=== PATIENT | female | born 1985 | race American Indian/Alaskan Native ===

== ENCOUNTER 2016-08-15 00:32 | Outpatient (CLI) | payer MEDICAID ==
[2016-08-15 06:06] LABS: Bilirubin,Urine NEG (Negative); Blood,Urine NEG (Negative); Ketones,Urine TR mg/dL (Negative); Leukocyte Esterase,Urine LG (Negative); Mucus,Urine 3+ /HPF; Nitrite,Urine NEG (Negative); Renal Epithelial Cells,Urine 1 /LPF
[2016-08-15] MEDS ORDERED: ROCEPHIN/NS 1 GM/50 ML 1 GM/50 ML BAG IV ONE (07:58)
[2016-08-15] MEDS ORDERED: TYLENOL PO ONE (07:59)
--- NOTE | 2016-08-15 08:16 | Emergency Department Report ---
- General Chief Complaint: Upper Respiratory Infection Stated Complaint: COLD SX/COUGH/PELVIC PAIN Time Seen by Provider: 08/15/16 07:41 Source: patient Mode of arrival: Ambulatory Limitations: No Limitations - History of Present Illness Initial Comments: 31-year-old female past medical history heavy smoker (3 packs/day per pt), ectopic presents with complaint of upper airway congestion, runny nose, cough for approximately one week. Patient states she is also had some mild vaginal spotting and crampy lower abdominal pain. Patient has no idea when her last menstrual period was. Patient is awake alert and oriented 3 not in acute distress, states that she came in primarily for upper airway congestion. Before I interviewed the patient she had urine test done which shows that she has both UTI and is positively and urine sample. He shouldn't is very aloof, slightly disheveled, I suspect this patient may be undomiciled based on her appearance during my clinical interview. Patient also not divulging much information, seems hesitant to give me details regarding her status. Patient awake alert and oriented 3. MD Complaint: fever, cough, rhinorrhea Onset/Timin -: week(s) - Related Data Home Medications Medication Instructions Recorded Confirmed Last Taken Vit #76/Iron,Carb/FA [Pnv 1 tab PO DAILY 01/06/15 01/06/15 Unknown 29-1 Tablet] Previous Rx's Medication Instructions Recorded Last Taken Type Ibuprofen [Motrin] 800 mg PO Q8H PRN #30 tablet 01/04/15 Unknown Rx [id number]/Iron Fumarate/FA/Dss 1 each PO QDAY #30 tablet 01/04/15 Unknown Rx [ 19 Tablet] Ferrous Sulfate [Feosol 325 MG tab] 325 mg PO BID #60 tablet 06/17/15 Unknown Rx HYDROcodone/APAP 5-325 [[place] 1 each PO Q6HR PRN #30 tablet 06/17/15 Unknown Rx 5-325 mg TAB] Docusate Sodium [Colace] 100 mg PO BID PRN #30 capsule 06/29/15 Unknown Rx Ondansetron [Zofran Odt] 4 mg PO Q6HR #20 tab.rapdis 06/29/15 Unknown Rx Oxycodone HCl/Acetaminophen 1 each PO Q6HR PRN #20 tablet 06/29/15 Unknown Rx [Percocet 7.5/325 mg] levETIRAcetam [Keppra TAB] 500 mg PO BID #60 tablet 06/29/15 Unknown Rx Acetaminophen [Acetaminophen TAB] 500 mg PO Q6HR #30 tablet 08/15/16 Unknown Rx Nitrofurantoin Petroleum/M-Cryst 100 mg PO Q12HR #14 capsule 08/15/16 Unknown Rx [Macrobid CAP] Allergies Allergy/AdvReac Type Severity Reaction Status Date / Time No Known Allergies Allergy Unverified 06/17/15 10:57 ED Review of Systems ROS: Stated complaint: COLD SX/COUGH/PELVIC PAIN Other details as noted in HPI ED Past Medical Hx - Past Medical History Previous Medical History?: Yes Hx Seizures: Yes (?? possible immediate phase 01/2015) Hx Asthma: No Hx COPD: No Hx HIV: Yes (DX 12/19) - Surgical History Additional Surgical History: C/S x 4 / SURGERY FOR ECTOPIC - Social History Smoking Status: Never Smoker Substance Use Type: None - Medications Home Medications: Home Medications Medication Instructions Recorded Confirmed Last Taken Type Ibuprofen [Motrin] 800 mg PO Q8H PRN #30 tablet 01/04/15 Unknown Rx [id number]/Iron Fumarate/FA/Dss 1 each PO QDAY #30 tablet 01/04/15 Unknown Rx [ 19 Tablet] Vit #76/Iron,Carb/FA [Pnv 1 tab PO DAILY 01/06/15 01/06/15 Unknown History 29-1 Tablet] Ferrous Sulfate [Feosol 325 MG tab] 325 mg PO BID #60 tablet 06/17/15 Unknown Rx HYDROcodone/APAP 5-325 [[place] 1 each PO Q6HR PRN #30 tablet 06/17/15 Unknown Rx 5-325 mg TAB] Docusate Sodium [Colace] 100 mg PO BID PRN #30 capsule 06/29/15 Unknown Rx Ondansetron [Zofran Odt] 4 mg PO Q6HR #20 tab.rapdis 06/29/15 Unknown Rx Oxycodone HCl/Acetaminophen 1 each PO Q6HR PRN #20 tablet 06/29/15 Unknown Rx [Percocet 7.5/325 mg] levETIRAcetam [Keppra TAB] 500 mg PO BID #60 tablet 06/29/15 Unknown Rx Acetaminophen [Acetaminophen TAB] 500 mg PO Q6HR #30 tablet 08/15/16 Unknown Rx Nitrofurantoin Petroleum/M-Cryst 100 mg PO Q12HR #14 capsule 08/15/16 Unknown Rx [Macrobid CAP] ED Physical Exam - General Limitations: No Limitations ED Course Vital Signs 08/15/16 01:14 Temperature 97.6 F Pulse Rate 80 Respiratory 18 Rate Blood Pressure 111/67 O2 Sat by Pulse 100 Oximetry ED Medical Decision Making - Lab Data Result diagrams: 08/15/16 08:33 08/15/16 08:33 - Medical Decision Making A/P: at 30 weeks gestation unknown to patient, UTI, URI 1-patient stated she is unaware that she is currently , I informed Dr. Berry and ordered hCG type and screen and ultrasound as per ultrasound she is approximately 30 weeks with EDC 10/20/16 2-treated empirically with 1 g of IM ceftriaxone for UTI 3-I called on-call [facility] Dr. Richardson and discussed case with her, per patient to be transferred to L&D triage for monitoring care. I informed Dr. Sanchez this patient may have underlying psychosocial issues as per my clinical impression during my clinical interview of the patient 4-I updated Dr. Berry on patient's progress and plan for transfer to L&D 5- patient agreeable to monitoring Critical care attestation.: If time is entered above; I have spent that time in minutes in the direct care of this critically ill patient, excluding procedure time. ED Disposition Clinical Impression: Qualifiers: Weeks of gestation: 30 weeks Qualified Code(s): Z3A.30 - 30 weeks gestation of Disposition: DC/TX ANOTHER TYPE HEALTHCARE Is pt being admited?: No Does the pt Need Aspirin: No Condition: Stable Instructions: Urinary Tract Infection in Women (ED), (ED), How to Stop Smoking (ED) Additional Instructions: Patient physically transferred from adult ED to labor and delivery department by hospital corpsman and patient understands she is going to labor and delivery department for monitoring after my discussion of her case with BUILD TECHNICIAN Dr. Sanchez. Patient agreeable to this plan Prescriptions: Acetaminophen [Acetaminophen TAB] 500 mg PO Q6HR #30 tablet Nitrofurantoin Petroleum/M-Cryst [Macrobid CAP] 100 mg PO Q12HR #14 capsule Referrals: PRIMARY CARE, [Primary Care Provider] - 3-5 Days GERDA SANCHEZ MD [Staff Physician] - 3-5 Days [facility] [Provider Group] - 3-5 Days Time of Disposition: 10:47
[2016-08-15 08:51] LABS: Basophils % (Auto) 0.5 % (0.0-1.8); Eosinophils % (Auto) 2.3 % (0.0-4.3); Hematocrit 36.4 % (30.3-42.9); Hemoglobin 11.8 gm/dl (10.1-14.3); Mean Corpuscular HGB Conc 32 % (30-34); Mean Corpuscular Hemoglobin 27 pg (28-32); Mean Corpuscular Volume 83 fl (79-97); Platelet Count 193 K/mm3 (140-440); Red Blood Count 4.38 M/mm3 (3.65-5.03); Red Cell Distribution Width 15.7 % (13.2-15.2); White Blood Count 4.1 K/mm3 (4.5-11.0)
[2016-08-15 09:13] LABS: Alanine Aminotransferase 16 units/L (7-56); Albumin/Globulin Ratio 0.9 %; Alkaline Phosphatase 99 units/L (35-129); Anion Gap 18 mmol/L; Bilirubin,Total 0.2 mg/dL (0.1-1.2); Blood Urea Nitrogen 7 mg/dL (7-17); Calcium 9.1 mg/dL (8.4-10.2); Carbon Dioxide 22 mmol/L (22-30); Chloride 99.6 mmol/L (98-107); Glucose 68 mg/dL (65-100); Potassium 3.8 mmol/L (3.6-5.0); Sodium 136 mmol/L (137-145); Total Protein 8.4 g/dL (6.3-8.2)
[2016-08-15 09:16] LABS: Bilirubin,Direct < 0.2 mg/dL (0-0.2)
[2016-08-15] MEDS ORDERED: XYLOCAINE 1% MPF 5 mL INFILTRATI ONE (09:24)
[2016-08-15] MEDS ORDERED: ROCEPHIN IM ONE (09:24)
--- NOTE | 2016-08-15 10:02 | Ultrasound Report ---
OB ULTRASOUND: Gestation: trivedi Position: cephalic Amniotic Fluid: WNL (7-24 cm) CHRIS = 15.3 cm Placenta: anterior Placental Grade: I Heart Rate: 135 BPM Cervical length: 3.7 cm (Normal > 3 cm) ANATOMY VISUALIZED: Stomach Kidneys Bladder Diaphragm 4 Chamber Heart Heart 3 Vessel Cord SPINE VISUALIZED: Limited spine due to position BPD: 7.6 cm = 30 w 2 d HC: 29.1 cm = 32 w 1 d AC: 25.8 cm = 30 w 0 d FL: 5.7 cm = 29 w 6 d HC/AC Ratio: 1.13 Cephalic Index: 83.5 Estimated Weight: 1523 grams LMP: uncertain US Gest. Age = 30 w 4 d EDC: 10-20-
[2016-08-15 10:58] VITALS: BP 110/70
[2016-08-15] MEDS ORDERED: LACTATED RINGERS 500 ML IV ONE ×2 (11:37→11:38)
[2016-08-15 12:03] LABS: Bilirubin,Urine NEG (Negative); Blood,Urine NEG (Negative); Ketones,Urine NEG (Negative); Leukocyte Esterase,Urine SM (Negative); Mucus,Urine FEW /HPF; Nitrite,Urine NEG (Negative); Protein,Urine <15 mg/dL mg/dL (Negative); Urobilinogen,Urine < 2.0 mg/dL (<2.0)
== END 2016-08-15 13:25 | disposition home or self-care (01) ==
LOC: TRG 00:32 → ED 00:32 → TRG 11:20 → ED 11:20 → TRG 11:20 → EDSTATUS 11:29 → TRG 13:25
PROVIDERS: ATTEND Obstetrics & Gynecology
DX: O26.893 Other specified pregnancy related conditions, third trimester (principal); O77.9 Labor and delivery complicated by fetal stress, unspecified; R10.2 Pelvic and perineal pain; J00 Acute nasopharyngitis [common cold]; Z3A.30 30 weeks gestation of pregnancy
CPT/HCPCS: 36415; 59025; 76805; 76817; 80048; 80074; 81001; 81025; 83735; 84702; 85025; 86850; 86900; 86901; J0696; J7120

== ENCOUNTER 2016-10-04 18:53 | Inpatient (IN) | payer MEDICAID ==
[2016-10-04] MEDS ORDERED: BRETHINE SUB-Q ONE (19:09)
[2016-10-04] MEDS ORDERED: LACTATED RINGERS 1,000 ML IV SCH ×2 (20:00→22:00)
[2016-10-04 21:00] LABS: Urine Drugs of Abuse Note Disclamer
[2016-10-04 21:07] LABS: Bilirubin,Urine NEG (Negative); Blood,Urine NEG (Negative); Ketones,Urine 20 mg/dL (Negative); Leukocyte Esterase,Urine MOD (Negative); Mucus,Urine 1+ /HPF; Nitrite,Urine NEG (Negative)
[2016-10-04] MEDS ORDERED: PEPCID IV ONE (21:08)
[2016-10-04] MEDS ORDERED: BICITRA PO ONE (21:08)
[2016-10-04] MEDS ORDERED: REGLAN IV ONE (21:08)
[2016-10-04] MEDS ORDERED: EMLA TP PRN (21:08)
--- NOTE | 2016-10-04 21:21 | History and Physical Report ---
History of Present Illness Date of examination: 10/04/16 Date of admission: 10/04/16 20:54 Chief complaint: Painful contractions for 3 days History of present illness: This is a 31-year-old female 6 para 4 who presents for EMS complaining of painful contractions for 3 days. She presented to [facility] 2016 with the same complaint at which time she had an ultrasound that placed her estimated gestational age at 30 weeks with an estimated date of delivery of 10/20/2016. States contractions became progressively worse which prompted her to call EMS. Initial evaluation by the RN reveals cervix to be 1-2/100/0. IV fluid was started during her evaluation spontaneous rupture of membranes occur with meconium-stained fluid. During her assessment patient said she states she was diagnosed HIV-positive in December of last year. She has not been on any antivirals and she has not received any care in this . Cervix progressed to 2-3 cm dilation. Her past obstetrical history is significant for 4 previous C-sections. Due to concerns for uterine rupture will proceed with delivery immediately especially now the patient is ruptured. 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), section [employer] History: HIV Social history: alcohol abuse, IV drug use - Obstetrical History Expected Date of Delivery: 10/20/16 Actual Gestation: 37 Week(s) 5 Day(s) : 6 Spontaneous Abortions: 1 (Ectopic) Number of Living Children: 4 (c/sx4) Medications and Allergies Allergies Allergy/AdvReac Type Severity Reaction Status Date / Time No Known Allergies Allergy Unverified 06/17/15 10:57 Home Medications Medication Instructions Recorded Confirmed Last Taken Type Ibuprofen [Motrin] 800 mg PO Q8H PRN #30 tablet 01/04/15 Unknown Rx [id number]/Iron Fumarate/FA/Dss 1 each PO QDAY #30 tablet 01/04/15 Unknown Rx [ 19 Tablet] Vit #76/Iron,Carb/FA [Pnv 1 tab PO DAILY 01/06/15 01/06/15 Unknown History 29-1 Tablet] Ferrous Sulfate [Feosol 325 MG tab] 325 mg PO BID #60 tablet 06/17/15 Unknown Rx HYDROcodone/APAP 5-325 [[place] 1 each PO Q6HR PRN #30 tablet 06/17/15 Unknown Rx 5-325 mg TAB] Docusate Sodium [Colace] 100 mg PO BID PRN #30 capsule 06/29/15 Unknown Rx Ondansetron [Zofran Odt] 4 mg PO Q6HR #20 tab.rapdis 06/29/15 Unknown Rx Oxycodone HCl/Acetaminophen 1 each PO Q6HR PRN #20 tablet 06/29/15 Unknown Rx [Percocet 7.5/325 mg] levETIRAcetam [Keppra TAB] 500 mg PO BID #60 tablet 06/29/15 Unknown Rx Acetaminophen [Acetaminophen TAB] 500 mg PO Q6HR #30 tablet 08/15/16 Unknown Rx Nitrofurantoin [place]/M-Cryst 100 mg PO Q12HR #14 capsule 08/15/16 Unknown Rx [Macrobid CAP] Active Meds: Active Medications Citric Acid/Sodium Citrate (Bicitra) 30 ml PO ONCE ONE Stop: 10/04/16 21:09 Famotidine (Pepcid) 20 mg IV ONCE ONE Stop: 10/04/16 21:09 Lactated Ringer's (Lactated Ringers) 1,000 mls @ 125 mls/hr IV DIRECT NERIS Cefazolin Sodium (Ancef/Sterile Water 2 Gm/20 Ml) 2 gm in 20 mls @ 80 mls/hr IV PREOP NR PRN Reason: Protocol Lactated Ringer's (Lactated Ringers) 1,000 mls @ 2,250 mls/hr IV PREOP NERIS Stop: 10/05/16 22:27 Oxytocin 20 unit/ Sodium (Chloride) 1,000 mls @ 0 mls/hr IV TITR NERIS PRN Reason: As Directed Lidocaine/Prilocaine (Emla) 1 applic TP ONCE PRN PRN Reason: for leyva catheter insertion Metoclopramide HCl (Reglan) 10 mg IV ONCE ONE Stop: 10/04/16 21:09 Zidovudine (Retrovir) 0 mg IV Q4HR NERIS PRN Reason: Protocol Review of Systems All systems: negative Genitourinary: vaginal bleeding, leakage of fluid, contractions - Vital Signs Vital signs: Vital Signs Pulse Pulse Ox 90 100 10/04/16 19:08 10/04/16 19:08 Temp Pulse Resp BP Pulse Ox 81 99 10/04/16 19:54 10/04/16 19:54 - Physical Exam Breasts: Positive: deferred Lungs: Positive: Normal air movement Abdomen: Positive: normal appearance Genitourinary (Female): Positive: normal external genitalia, normal perenium Vulva: both: normal - Obstetrical FHR: category 2 Uterine Contraction Monitor Mode: External Cervical Dilatation: 2.5 Cervical Effacement Percentage: 100 station: 0 Uterine Contraction Pattern: Regular Results Abnormal lab results 10/04/16 Range/Units 20:50 Urine WBC (Auto) 9.0 H (0.0-6.0) /HPF All other labs normal. Assessment and Plan - Patient Problems (1) 37 weeks gestation of Current Visit: Yes Status: Acute (2) Sterilization Current Visit: Yes Status: Acute Plan to address problem: Risks of regret emphasized. Permanent and irreversible condition explained to patient. The risks and alternatives to this surgery were reviewed with the patient. 1% failure rate discussed (3) Active labor at term Current Visit: Yes Status: Acute (4) Maternal care for scar from previous delivery Current Visit: Yes Status: Acute Qualifiers: Previous delivery type: P (5) HIV disease Current Visit: Yes Status: Chronic (6) Spontaneous rupture of membranes Current Visit: Yes Status: Acute (7) Seizure Current Visit: Yes Status: Chronic
[2016-10-04 21:25] LABS: Basophils % (Auto) 0.2 % (0.0-1.8); Eosinophils % (Auto) 0.1 % (0.0-4.3); Hematocrit 36.6 % (30.3-42.9); Hemoglobin 11.9 gm/dl (10.1-14.3); Mean Corpuscular HGB Conc 33 % (30-34); Mean Corpuscular Hemoglobin 27 pg (28-32); Mean Corpuscular Volume 83 fl (79-97); Platelet Count 186 K/mm3 (140-440); Red Blood Count 4.43 M/mm3 (3.65-5.03); Red Cell Distribution Width 15.3 % (13.2-15.2); White Blood Count 12.9 K/mm3 (4.5-11.0)
[2016-10-04] MEDS ORDERED: PITOCin/NS 20 UNIT/1000ML DRIP 20,000 MILLIUNITS/1,000 ML BAG IV ONE (21:33)
[2016-10-04] MEDS ORDERED: RETROVIR IV ONE (22:00)
[2016-10-04] MEDS ORDERED: D5W IV ONE (22:00)
[2016-10-04] MEDS ORDERED: ANCEF/STERILE WATER 2 GM/20 ML 2 GM/20 ML SYRINGE IV NR (22:00)
[2016-10-04] MEDS ORDERED: RETROVIR IV SCH (22:00)
[2016-10-04] MEDS ORDERED: PITOCin 20 UNIT in NACL 0.9% 1000 ML 998 ML IV SCH (22:00)
[2016-10-04] MEDS ORDERED: DIPRIVAN 10 MG/ML IV ONE (22:42)
[2016-10-04] MEDS ORDERED: SUBLIMAZE ONE (22:45)
[2016-10-04 22:54] LABS: HIVR-1/2 Ab Reactive (Non React)
[2016-10-04] MEDS ORDERED: WATER FOR IRRIG STERILE IR ONE (22:55)
[2016-10-04] MEDS ORDERED: NACL 0.9% IR ONE (22:55)
[2016-10-04] MEDS ORDERED: MORPHINE ONE (23:00)
[2016-10-04] MEDS ORDERED: RETROVIR 400 MG in D5W 160 ML IV SCH (23:00)
[2016-10-04 23:02] LABS: HIV-1 Antigen p24 Non React (Non React)
[2016-10-04] MEDS ORDERED: QUELICIN ONE (23:03)
[2016-10-04] MEDS ORDERED: TORADOL ONE (23:16)
--- NOTE | 2016-10-04 23:58 | Anesthesia Consultation ---
Anesthesia Consult and Med Hx Date of service: 10/04/16 - Airway Anesthetic Teeth Evaluation: Good ROM Head & Neck: Adequate Mental/Hyoid Distance: Adequate Mallampati Class: Class II Intubation Access Assessment: Good - Pulmonary Exam CTA: Yes - Cardiac Exam Cardiac Exam: No Murmur - Pre-Operative Health Status ASA Pre-Surgery Classification: ASA3 Proposed Anesthetic Plan: General - Pulmonary Hx Smoking: Yes Hx Asthma: No COPD: No Hx Pneumonia: No - Cardiovascular System Hx Hypertension: No - Central Nervous System Hx Seizures: Yes (?? possible immediate phase 01/2015) Hx Back Pain: Yes Hx Psychiatric Problems: No - Gastrointestinal Hx Gastroesophageal Reflux Disease: Yes - Endocrine Hx Renal Disease: No Hx End Stage Renal Disease: No Hx Hypothyroidism: No Hx Hyperthyroidism: No - Hematic Hx Anemia: No Hx Sickle Cell Disease: No - Other Systems Hx Alcohol Use: No
--- NOTE | 2016-10-04 23:58 | Post Anesthesia Evaluation ---
- Post Anesthesia Evaluation Patient Participated: Yes Airway Patent: Yes Stable Respiratory Function: Yes Nausea/Vomiting: No Temp > 96.8F: Yes Pain Manageable: Yes Adequeate Hydration: Yes Anesthesia Complications: No
[2016-10-05] MEDS ORDERED: LANSINOH TP PRN (01:35)
[2016-10-05] MEDS ORDERED: BENADRYL IV PRN (01:35)
[2016-10-05] MEDS ORDERED: NARCAN 0.4 MG/1 ML IV PRN ×2 (01:35)
[2016-10-05] MEDS ORDERED: PHENERGAN PR PRN (01:35)
[2016-10-05] MEDS ORDERED: MOTRIN PO PRN (01:35)
[2016-10-05] MEDS ORDERED: PITOCin 20 UNIT in NACL 0.9% 1000 ML 998 ML IV SCH (01:35)
[2016-10-05] MEDS ORDERED: REGLAN PO PRN (01:35)
[2016-10-05] MEDS ORDERED: DILAUDID PCA 6MG/30ML IV SCH (01:35)
[2016-10-05] MEDS ORDERED: ZOFRAN IV PRN (01:35)
[2016-10-05] MEDS ORDERED: REGLAN IV PRN (01:35)
[2016-10-05] MEDS ORDERED: BENADRYL PO PRN (01:35)
[2016-10-05] MEDS ORDERED: SODIUM CHLORIDE FLUSH SYRINGE 10 ML IV PRN (01:35)
[2016-10-05] MEDS ORDERED: TUCKS PAD TP PRN (01:35)
[2016-10-05] MEDS ORDERED: D5LR 1,000 ML IV SCH (01:35)
--- NOTE | 2016-10-05 02:00 | Operative Report ---
Operative Report Operative Report: Date of procedure: 10/04/2016 Pre-operative diagnosis: 1. Intrauterine at 37 weeks 2. Active labor 3. Spontaneous rupture of membranes, meconium-stained fluid 4. No care 5. HIV positive 6. Seizure disorder 7. Previous 4 8. Desires sterilization Post-operative diagnosis: 1. Intrauterine at 37 weeks 2. Active labor 3. Spontaneous rupture of membranes, meconium-stained fluid 4. No care 5. HIV positive 6. Seizure disorder 7. Previous 4 8. Desires sterilization Procedure name(s): Low transverse section Surgeon: Jen Watts MD Director Of Strategic Alliances: [] Anesthesia: General anesthesia EBL: 800 mL Anesthesiologist: Dr. efren Smith Complications: None Findings: Born male infant, weight 6 lbs. 5 oz. Apgars 2 at 1 minute and 7 at 5 minutes. As per patient history she only had a 5 cm segment of distal tube on the right. There was no tube attached to the uterus on the right side. Grossly normal left fallopian tube and bilateral ovaries and uterus. Thick meconium at delivery. Procedure: After risks, benefits, and complications and alternatives and consequences, were discussed with patient, and she voiced her understanding and desired to proceed. Patient was taken to the OR, where she was placed in the left lateral tilt position, and prepped and draped in the usual sterile fashion. After timeout was performed, general anesthesia was induced, ( patient received spinal epidural) a Pfannenstiel incision was made and extended to the fascia. The fascia was incised and extended in a lateral direction. The overlying fascia was sharply dissected away from the underlying rectus muscles in the superior-inferior direction. Due to excessive adhesions the time to entering the abdomen was prolonged. The midline was entered bluntly. The vesicouterine fold was incised and with blunt and sharp dissection the bladder flap was created. A transverse incision was made in the lower uterine segment and extended in the superior lateral direction with finger fractionation. Meconium fluid was noted. The infant was delivered from the cephalic position.The cord was doubly clamped and cut. The infant's mouth and nose were bulb suctioned. And the infant was given to the resuscitation team present. The placenta was manually extracted. The uterus was exteriorized and cleaned any products of conception and placental tissue. The incision was reapproximated using 0 Vicryl in a running interlocking stitch. A Filshie clip was placed on the ampullary region of the left tube. The inferior lip was visualized through the mesosalpinx and clamping the tube. A Filshie clip was also placed on the remaining distal portion of the right tube. Once hemostasis was noted, the uterus was allowed back into the pelvic cavity. The pelvis was irrigated with warm normal saline. Once hemostasis was noted, attention was turned to the rectus muscles. Rectus muscles were approximated using 0 Vicryl in interrupted suture. Once hemostasis was noted, the fascia was reapproximated using 0 Vicryl in a simple running stitch. Once hemostasis was noted, the incision was irrigated with normal saline. The incision was then reapproximated using 4-0 Vicryl on a Jose needle in a subcuticular manner. Patient tolerated the procedure well she was taken to recovery room in stable condition. Counts were correct 3
[2016-10-05] MEDS: ANCEF/NS 1 GM/50 ML 1 GM/50 ML BAG IV SCH ×2 (06:08→15:43)
[2016-10-05] MEDS: TORADOL IV SCH ×2 (06:09→15:49)
--- NOTE | 2016-10-05 08:01 | Progress Note ---
Assessment and Plan - Patient Problems (1) delivery delivered Onset Date: ~10/05/16 Current Visit: No Status: Acute Plan to address problem: pt resting quietly No c/o voiced VSS FF below umb Lochia small Dressing D&I H&H pending Doing well s/p repeat c/s P: continue pathway; AZT given to baby; notified of consult ID and CM to see pt also. Subjective - Subjective Date of service: 10/05/16 (8 hours post section) Patient reports: pain well controlled [place]: doing well Objective - Vital Signs Latest vital signs: Vital Signs Temp Pulse Pulse Resp BP BP Pulse Ox 10/05/16 06:09 20 10/05/16 05:10 98.5 F 81 18 118/59 10/05/16 04:00 18 10/05/16 01:35 98.6 F 65 20 149/80 10/05/16 00:56 63 13 120/46 100 10/05/16 00:50 60 13 121/60 100 10/05/16 00:45 59 L 17 121/60 100 10/05/16 00:40 59 L 18 130/59 100 10/05/16 00:36 60 17 138/42 100 10/05/16 00:30 61 12 124/53 100 10/05/16 00:26 60 20 124/53 100 10/05/16 00:20 59 L 20 123/57 100 10/05/16 00:15 61 15 119/69 100 10/05/16 00:10 62 12 125/59 100 10/05/16 00:05 61 12 136/67 100 10/05/16 00:00 69 12 100 10/04/16 23:56 70 15 100 10/04/16 23:55 98.0 F 10/04/16 23:52 82 10 L 10/04/16 19:54 81 99 10/04/16 19:49 92 H 100 10/04/16 19:44 99 H 98 10/04/16 19:39 105 H 92 10/04/16 19:38 94 H 100 10/04/16 19:33 89 100 10/04/16 19:32 99 H 89 10/04/16 19:28 91 H 100 10/04/16 19:23 85 100 10/04/16 19:21 85 92 10/04/16 19:18 91 H 100 10/04/16 19:13 95 H 100 10/04/16 19:08 90 100 Intake and Output 10/04/16 10/05/16 10/05/16 22:59 06:59 14:59 Intake Total 500 1375 Output Total 325 Balance 500 1050 Intake: IV 500 1375 PITOCin 20 UNIT In NaCl 0 375 .9% 1000 ml 998 ml @ 250 mls/hr IV DIRECT NERIS Rx#:[id number] Output: Urine 325 Uretheral (Cobb) 125 Other: Weight 230 lb - Exam Breasts: Present: normal Cardiovascular: Present: Regular rate Lungs: Present: Normal air movement Abdomen: Present: normal appearance, soft Uterus: Present: normal, fundal height below umbilicus Extremities: Present: normal Deep Tendon Reflex Grade: Normal +2 Incision: Present: dry, intact, dressed - Labs Labs: Abnormal lab results 10/04/16 10/04/16 Range/Units 20:50 20:50 WBC 12.9 H (4.5-11.0) K/mm3 MCH 27 L (28-32) pg RDW 15.3 H (13.2-15.2) % Lymph % (Auto) 8.6 L (13.4-35.0) % [place] % (Auto) 8.6 H (0.0-7.3) % Lymph # 1.1 L (1.2-5.4) K/mm3 [place] # 1.1 H (0.0-0.8) K/mm3 Seg Neutrophils % 82.5 H (40.0-70.0) % Seg Neutrophils # 10.6 H (1.8-7.7) K/mm3 Urine WBC (Auto) 9.0 H (0.0-6.0) /HPF
[2016-10-05] MEDS: PERCOCET 5/325 PO PRN ×3 (10:17→22:38)
[2016-10-05] MEDS: KEPPRA PO SCH (10:19)
[2016-10-05] MEDS ORDERED: FLUARIX QUAD 2016-2017(36 MOS+) IM ONE (12:00)
[2016-10-05 14:47] LABS: Hematocrit 27.9 % (30.3-42.9); Hemoglobin 9.1 gm/dl (10.1-14.3)
--- NOTE | 2016-10-05 17:07 | Consultation ---
History of Present Illness - Reason for Consult Reason for consult: psych consult - Chief Complaint Chief complaint: CC: I can use you" 31 yo BF with history of bipolar d/o and cocaine abuse presented to [facility] and gave . We have been asked to help manage the patient's mental illness. She was present with her family and permitted them to give information for the interview. The patient notes that she has a history of bipolar disorder that dates back to when she was a teen. Recently she's not been able to get mental health care and notes that she's been off her medications. Despite this her symptoms have been relatively mild per the family and patient. She has been depressed but not to a point of any suicidal thoughts. The patient and family both note that they don't feel the patient is in any risk of harm to herself or the baby. They have not seen the patient act in this fashion either. She has not had any SI/HI/AH/VH. Sleep is fair with no crying spells. No paranoia or lack of energy. However the patient admits that she's been using cocaine- as recently as yesterday in order to help get away from her stressors (this despite have the support of family). Its unclear how often or how much cocaine the patient has been abusing. The family notes that she tends to not follow up with her mental health care and tends to make poor choices that led her into troublesome situations- such as using cocaine while . The patient herself admits to poor choices and still wants to care for her child. Currently the patient denies any SI/HI/AH/VH. The family notes no acute risk of harm is present from the patient. The patient was sedated by the medications being given and a large part of the interview was obtained from the family. Medications and Allergies Allergies Allergy/AdvReac Type Severity Reaction Status Date / Time No Known Allergies Allergy Unverified 06/17/15 10:57 Home Medications Medication Instructions Recorded Confirmed Last Taken Type Ibuprofen [Motrin] 800 mg PO Q8H PRN #30 tablet 01/04/15 Unknown Rx Nru273/Iron Fumarate/FA/Dss 1 each PO QDAY #30 tablet 01/04/15 Unknown Rx [ 19 Tablet] Vit #76/Iron,Carb/FA [Pnv 1 tab PO DAILY 01/06/15 01/06/15 Unknown History 29-1 Tablet] Ferrous Sulfate [Feosol 325 MG tab] 325 mg PO BID #60 tablet 06/17/15 Unknown Rx HYDROcodone/APAP 5-325 [[place] 1 each PO Q6HR PRN #30 tablet 06/17/15 Unknown Rx 5-325 mg TAB] Docusate Sodium [Colace] 100 mg PO BID PRN #30 capsule 06/29/15 Unknown Rx Ondansetron [Zofran Odt] 4 mg PO Q6HR #20 tab.rapdis 06/29/15 Unknown Rx Oxycodone HCl/Acetaminophen 1 each PO Q6HR PRN #20 tablet 06/29/15 Unknown Rx [Percocet 7.5/325 mg] levETIRAcetam [Keppra TAB] 500 mg PO BID #60 tablet 06/29/15 Unknown Rx Acetaminophen [Acetaminophen TAB] 500 mg PO Q6HR #30 tablet 08/15/16 Unknown Rx Nitrofurantoin [place]/M-Cryst 100 mg PO Q12HR #14 capsule 08/15/16 Unknown Rx [Macrobid CAP] Ibuprofen [Motrin 800 MG tab] 800 mg PO TID PRN #30 tablet 10/05/16 Unknown Rx Lidocain2.5%/Prilocai2.5% [Emla] 5 gm TP ONCE #1 tube 10/05/16 Unknown Rx oxyCODONE /ACETAMINOPHEN [Percocet 1 - 2 tab PO Q4HR PRN #30 tablet 10/05/16 Unknown Rx 5/325 mg] Active Meds: Active Medications Diphenhydramine HCl (Benadryl) 25 mg IV Q4H PRN PRN Reason: Itching Diphenhydramine HCl (Benadryl) 25 mg PO Q4H PRN PRN Reason: Itching Diphtheria/Tetanus/Acell Pertussis (Boostrix) 0.5 ml IM .ONCE ONE Stop: 10/06/16 06:01 Hydromorphone/Sodium Chloride (Dilaudid [employer] 6mg/30ml) 0 mg IV DIRECT NERIS PRN Reason: Protocol Last Admin: 10/05/16 02:05 Dose: 1 cartstart Dextrose/Lactated Ringer's (D5lr) 1,000 mls @ 125 mls/hr IV DIRECT NERIS Oxytocin 20 unit/ Sodium (Chloride) 1,000 mls @ 250 mls/hr IV DIRECT [facility] Ibuprofen (Motrin) 800 mg PO Q6H PRN PRN Reason: Pain, Mild (1-3) Ketorolac Tromethamine (Toradol) 30 mg IV Q6H [facility] Stop: 10/06/16 00:01 Last Admin: 10/05/16 15:49 Dose: 30 mg Levetiracetam (Keppra) 500 mg PO BID [facility] Last Admin: 10/05/16 10:19 Dose: 500 mg Metoclopramide HCl (Reglan) 10 mg IV Q6H PRN PRN Reason: N/V if NPO. Metoclopramide HCl (Reglan) 10 mg PO Q6H PRN PRN Reason: Nausea Multi-Ingredient Ointment (Lansinoh) 1 applic TP PRN PRN PRN Reason: dryness/cracking Naloxone HCl (Narcan 0.4 Mg/1 Ml) 0.1 mg IV Q2MIN PRN PRN Reason: Res Rate </= 8 or 02 SAT < 92% Ondansetron HCl (Zofran) 4 mg IV Q8H PRN PRN Reason: N/V unrelieved by Reglan Oxycodone/Acetaminophen (Percocet 5/325) 2 tab PO Q6H PRN PRN Reason: Pain, Moderate (4-6) Last Admin: 10/05/16 16:08 Dose: 2 tab Promethazine HCl (Phenergan) 25 mg [place] Q6H PRN PRN Reason: Nausea And Vomiting Sodium Chloride (Sodium Chloride Flush Syringe 10 Ml) 10 ml IV PRN PRN PRN Reason: LINE FLUSH Witch Jagruti/Glycerin (Tucks Pad) 1 each TP PRN PRN PRN Reason: Hemorrhoids/cleansing/soothing Past psychiatric history - Past Medical History Past Medical History: HIV/AIDS, seizures Past Surgical History: - past Psychiatric treatment and history Psych: Bipolar psychiatric treatment history: inpt: [facility] for two days- patient noted that she wasn't admitted thought outpt: none past psych meds: ritalin and seroquel family history: pt is adopted no suicide attempts substance history: patient admits to cocaine use, no etoh or any other illicit drug use- however unclear details- patient was distracted and sedated - Social History Social history: other (lives with her adoptive "family", she has 5 children, babies father is involved per family, not working, SSI, 9th grade education, [employer] is involved with this , no history of abuse) Mental Status Exam - Vital signs Last Vital Signs Temp 98.1 F 10/05/16 15:40 Pulse 86 10/05/16 15:40 Resp 18 10/05/16 15:40 BP 110/52 10/05/16 15:40 Pulse Ox 100 10/05/16 00:56 - Exam Orientation: time, person Affect: normal Mood: appropriate Thought content: other (impoverished) Thought Process: Circumstantial Perceptions: none Speech: slurring Concentration: distractible, unable to pay attention Motor activity: restless Level of consciousness: sedated Memory: Recent Impaired, Remote Impaired Interaction: cooperative (patient was sedated so a full exam wasn't accomplished ) Results Result Diagrams: 10/05/16 14:14 Abnormal lab results 10/04/16 10/04/16 10/05/16 Range/Units 20:50 20:50 14:14 WBC 12.9 H (4.5-11.0) K/mm3 Hgb 9.1 L (10.1-14.3) gm/dl Hct 27.9 L D (30.3-42.9) % MCH 27 L (28-32) pg RDW 15.3 H (13.2-15.2) % Lymph % (Auto) 8.6 L (13.4-35.0) % Ada % (Auto) 8.6 H (0.0-7.3) % Lymph # 1.1 L (1.2-5.4) K/mm3 Ada # 1.1 H (0.0-0.8) K/mm3 Seg Neutrophils % 82.5 H (40.0-70.0) % Seg Neutrophils # 10.6 H (1.8-7.7) K/mm3 Urine WBC (Auto) 9.0 H (0.0-6.0) /HPF All other labs normal. Assessment and Plan Assessment and plan: 31 yo BF with history of bipolar d/o and cocaine abuse presented to [facility] and gave . We have been asked to help manage the patient's mental illness. She was present with her family and permitted them to give information for the interview. The patient notes that she has a history of bipolar disorder. Currently the symptoms seem to be relatively present but not acute. Patient was sedated from the pain meds but made it clear she wishes to care for the baby. The family is concerned over her not being compliant with her meds and her poor choices including recent use of cocaine. bipolar dx: patient and I discussed using her Seroquel in conjunction with a mood stabilizer. The patient is not going to breastfeed and therefore we feel the combination of both meds will be in the patient's best interest. We discussed side effects and benefits of the meds. Patient is agreeable to begin the meds and agrees follow up care with mental health is highly important. Start with Seroquel 200mg bedtime with Depakote 500mg daily for today - while they are low dosages, I am taking into account the patient is already sedated and will actively adjust accordingly while patient is in the hospital. cocaine: patient will benefit from substance treatment on an outpatient basis alongside her mental health treatment - Psychiatric problem (1) Cocaine abuse Current Visit: Yes Status: Acute
[2016-10-06] MEDS: KEPPRA PO SCH ×3 (00:15→22:10)
[2016-10-06] MEDS: TORADOL IV SCH (00:55)
--- NOTE | 2016-10-06 03:55 | Progress Note ---
Assessment and Plan - Patient Problems (1) delivery delivered Onset Date: ~10/04/16 Current Visit: No Status: Acute Plan to address problem: Pt would not answer questions. RN states pt has also been noncommunicative with her also. She will shake her head in the positive/negative when ask questions. VSS FF below umb Lochia scant Incision D&I H&H 9.1.9 Pt is asymptomatic Pt has been seen by mental health and case management assistant. Second call placed to infectious disease for pt to have consult. P: continue pathway Consult with . Please see consult notes from MH and CM. Subjective - Subjective Date of service: 10/06/16 (pt refused to communicate) Patient reports: appetite normal, voiding normally, pain well controlled, ambulating normally : doing well (in holding nursery) Objective - Vital Signs Latest vital signs: Vital Signs Temp Pulse Resp BP 10/06/16 00:00 98.4 F 74 20 128/53 10/05/16 22:38 20 10/05/16 15:40 98.1 F 86 18 110/52 10/05/16 11:58 97.9 F 60 18 102/50 10/05/16 10:30 20 10/05/16 10:00 18 10/05/16 08:34 98.2 F 64 18 116/50 10/05/16 08:00 20 10/05/16 06:09 20 10/05/16 06:00 20 10/05/16 05:10 98.5 F 81 18 118/59 10/05/16 04:00 18 Intake and Output 10/05/16 10/05/16 10/06/16 14:59 22:59 06:59 Intake Total 2550 840 Output Total 1450 Balance 1100 840 Intake: IV 750 PITOCin 20 UNIT In NaCl 0 750 .9% 1000 ml 998 ml @ 250 mls/hr IV DIRECT NERIS Rx#:[id number] Oral 1320 840 Intake, Free Water 480 Output: Urine 1450 Indwelling Catheter 1450 Other: Total, Intake Amount 120 240 Total, Output Amount 800 Voiding Method Toilet # Voids Indwelling Catheter 1 1 - Exam Breasts: Present: normal Cardiovascular: Present: Regular rate Lungs: Present: Normal air movement Abdomen: Present: normal appearance, soft Vulva: both: normal Uterus: Present: normal, fundal height below umbilicus Extremities: Present: edema Deep Tendon Reflex Grade: Normal +2 Incision: Present: dry, intact - Labs Labs: Abnormal lab results 10/05/16 Range/Units 14:14 Hgb 9.1 L (10.1-14.3) gm/dl Hct 27.9 L D (30.3-42.9) %
[2016-10-06] MEDS ORDERED: BOOSTRIX IM ONE (06:00)
--- NOTE | 2016-10-06 14:43 | Consultation ---
History of Present Illness - Reason for Consult Consult date: 10/06/16 HIV Requesting physician: RAYMUNDO GARCIA - History of Present Illness This is a 31-year-old female 6 para 4 who presents for EMS complaining of painful contractions for 3 days. She presented to [facility] 2016 with the same complaint at which time she had an ultrasound that placed her estimated gestational age at 30 weeks with an estimated date of delivery of 10/20/2016. States contractions became progressively worse which prompted her to call EMS. Initial evaluation by the RN reveals cervix to be 1-2/100/0. IV fluid was started during her evaluation spontaneous rupture of membranes occur with meconium-stained fluid. During her assessment patient said she was diagnosed HIV-positive in December of last year. She has not been on any antivirals and she has not received any care in this . She was delivered of a baby boy by CS. Infectious disease consulted for possibly starting antiretrovirals. Patient seen at bedside. She is drowsy and unable to provide history. Information from medical records indicates that patient had been very non compliance with her care. She reportedly used cocaine even during the . Last cd4 count and viral load unknown. Past Medical History: seizure and bipolar disorder. Physical examination - unremarkable. LABS - Reviewed. See lab section. RPR - neg Hepatitis panel - neg. ASSESSMENT 1. HIV/AIDS 2. Seizure disorder 3. Bipolar disorder. RECOMMENDATIONS 1. CD4 COUNT AND VIRAL LOAD. 2. CBC, BMP. 3. CT head to evaluate drowsiness although drowsiness may be medication induced. 4. Will not commence antiretroviral treatment for her at this point. She is not compliant with treatment and the potential risk of developing resistance with interrupted treatment is a concern. 5. Discussed with the siphon operator, baby is doing well. Baby is on Nevirapine and zidovudine. A third dose of nevirapine should be given in 4days and zidovudine alone should be continued for 6weeks. For a detailed guide as to treatment monitoring and virologic tests on the baby, I recommend a pediatric infectious disease input. 6. No breast feeding. To accomplish this, considering the mothers non adherence to medical advise, I recommend the baby`s care be closely monitored by a third republican. Past History Past Medical History: HIV/AIDS, seizures Past Surgical History: Social history: other (lives with her adoptive "family", she has 5 children, babies father is involved per family, not working, SSI, 9th grade education, [employer] is involved with this , no history of abuse) Medications and Allergies Allergies Allergy/AdvReac Type Severity Reaction Status Date / Time No Known Allergies Allergy Unverified 06/17/15 10:57 Home Medications Medication Instructions Recorded Confirmed Last Taken Type Ibuprofen [Motrin] 800 mg PO Q8H PRN #30 tablet 01/04/15 Unknown Rx Rps698/Iron Fumarate/FA/Dss 1 each PO QDAY #30 tablet 01/04/15 Unknown Rx [ 19 Tablet] Vit #76/Iron,Carb/FA [Pnv 1 tab PO DAILY 01/06/15 01/06/15 Unknown History 29-1 Tablet] Ferrous Sulfate [Feosol 325 MG tab] 325 mg PO BID #60 tablet 06/17/15 Unknown Rx HYDROcodone/APAP 5-325 [[place] 1 each PO Q6HR PRN #30 tablet 06/17/15 Unknown Rx 5-325 mg TAB] Docusate Sodium [Colace] 100 mg PO BID PRN #30 capsule 06/29/15 Unknown Rx Ondansetron [Zofran Odt] 4 mg PO Q6HR #20 tab.rapdis 06/29/15 Unknown Rx Oxycodone HCl/Acetaminophen 1 each PO Q6HR PRN #20 tablet 06/29/15 Unknown Rx [Percocet 7.5/325 mg] levETIRAcetam [Keppra TAB] 500 mg PO BID #60 tablet 06/29/15 Unknown Rx Acetaminophen [Acetaminophen TAB] 500 mg PO Q6HR #30 tablet 08/15/16 Unknown Rx Nitrofurantoin [place]/M-Cryst 100 mg PO Q12HR #14 capsule 08/15/16 Unknown Rx [Macrobid CAP] Ibuprofen [Motrin 800 MG tab] 800 mg PO TID PRN #30 tablet 10/05/16 Unknown Rx Lidocain2.5%/Prilocai2.5% [Emla] 5 gm TP ONCE #1 tube 10/05/16 Unknown Rx oxyCODONE /ACETAMINOPHEN [Percocet 1 - 2 tab PO Q4HR PRN #30 tablet 10/05/16 Unknown Rx 5/325 mg] Active Meds: Active Medications Diphenhydramine HCl (Benadryl) 25 mg IV Q4H PRN PRN Reason: Itching Diphenhydramine HCl (Benadryl) 25 mg PO Q4H PRN PRN Reason: Itching Divalproex Sodium (Depakote Dr) 500 mg PO DAILY [facility] Last Admin: 10/06/16 10:03 Dose: 500 mg Hydromorphone/Sodium Chloride (Dilaudid Beater Dumper 6mg/30ml) 0 mg IV DIRECT NERIS PRN Reason: Protocol Last Admin: 10/05/16 02:05 Dose: 1 cartstart Dextrose/Lactated Ringer's (D5lr) 1,000 mls @ 125 mls/hr IV DIRECT NERIS Oxytocin 20 unit/ Sodium (Chloride) 1,000 mls @ 250 mls/hr IV DIRECT NERIS Ibuprofen (Motrin) 800 mg PO Q6H PRN PRN Reason: Pain, Mild (1-3) Levetiracetam (Keppra) 500 mg PO BID [facility] Last Admin: 10/06/16 10:04 Dose: 500 mg Metoclopramide HCl (Reglan) 10 mg IV Q6H PRN PRN Reason: N/V if NPO. Metoclopramide HCl (Reglan) 10 mg PO Q6H PRN PRN Reason: Nausea Multi-Ingredient Ointment (Lansinoh) 1 applic TP PRN PRN PRN Reason: dryness/cracking Naloxone HCl (Narcan 0.4 Mg/1 Ml) 0.1 mg IV Q2MIN PRN PRN Reason: Res Rate </= 8 or 02 SAT < 92% Ondansetron HCl (Zofran) 4 mg IV Q8H PRN PRN Reason: N/V unrelieved by Reglan Oxycodone/Acetaminophen (Percocet 5/325) 2 tab PO Q6H PRN PRN Reason: Pain, Moderate (4-6) Last Admin: 10/05/16 22:38 Dose: 2 tab Promethazine HCl (Phenergan) 25 mg [place] Q6H PRN PRN Reason: Nausea And Vomiting Quetiapine Fumarate (Seroquel) 200 mg PO QHS [facility] Last Admin: 10/05/16 22:39 Dose: 200 mg Sodium Chloride (Sodium Chloride Flush Syringe 10 Ml) 10 ml IV PRN PRN PRN Reason: LINE FLUSH Witch Jagruti/Glycerin (Tucks Pad) 1 each TP PRN PRN PRN Reason: Hemorrhoids/cleansing/soothing Physical Examination - Constitutional Vitals: Vital Signs Temp Pulse Resp BP Pulse Ox 98.9 F 88 20 100/50 100 10/06/16 08:04 10/06/16 08:04 10/06/16 08:04 10/06/16 08:04 10/05/16 00:56 Temperature -Last 24 Hours Temperature 98.9 F Temperature 98.4 F Temperature 98.1 F Results - Labs CBC & Chem 7: 10/05/16 14:14 Labs: Abnormal lab results 10/05/16 Range/Units 14:14 Hgb 9.1 L (10.1-14.3) gm/dl Hct 27.9 L D (30.3-42.9) %
--- NOTE | 2016-10-06 17:32 | Cat Scan Report ---
FINAL REPORT EXAM: CT HEAD/BRAIN WO CON HISTORY: altered mental status TECHNIQUE: CT imaging acquired through the head without intravenous contrast. Transaxial reformations are provided. PRIORS: 06/29/2015 FINDINGS: Small masses in the body of the right lateral ventricle on image 35 and in the right occipital horn on image 28 are unchanged from 06/29/2015. The ventricles, cisterns and sulci are otherwise normal. No no additional suggested intraparenchymal or extra-axial mass, hemorrhage, or mass effect. Orozco and white-matter differentiation is normal. Normal spherical shape of the globes. Paranasal sinuses and mastoid air cells are clear. No skull or facial fracture visualized. IMPRESSION: No acute intracranial abnormality. Consider MRI as warranted. Right lateral intraventricular masses appear unchanged from 06/29/2015. Correlation with any additional prior imaging is requested as MRI has been previously recommended for further evaluation of these findings.
[2016-10-06 18:16] LABS: Basophils % (Auto) 0.3 % (0.0-1.8); Eosinophils % (Auto) 0.4 % (0.0-4.3); Hematocrit 28.4 % (30.3-42.9); Hemoglobin 9.5 gm/dl (10.1-14.3); Mean Corpuscular HGB Conc 33 % (30-34); Mean Corpuscular Hemoglobin 28 pg (28-32); Mean Corpuscular Volume 83 fl (79-97); Platelet Count 188 K/mm3 (140-440); Red Blood Count 3.42 M/mm3 (3.65-5.03); Red Cell Distribution Width 15.7 % (13.2-15.2); White Blood Count 8.7 K/mm3 (4.5-11.0)
[2016-10-06 18:36] LABS: Anion Gap 18 mmol/L; Blood Urea Nitrogen 6 mg/dL (7-17); Calcium 8.6 mg/dL (8.4-10.2); Carbon Dioxide 21 mmol/L (22-30); Chloride 104.5 mmol/L (98-107); Glucose 114 mg/dL (65-100); Potassium 4.1 mmol/L (3.6-5.0); Sodium 139 mmol/L (137-145)
[2016-10-06] MEDS: PERCOCET 5/325 PO PRN (19:45)
--- NOTE | 2016-10-06 20:04 | Progress Note ---
Subjective - Reason for Consult Reason for consult: psych management - Chief Complaint Chief complaint: C 31 yo BF with history of bipolar d/o and cocaine abuse presented to [facility] and gave . We have been asked to help manage the patient's mental illness. Patient remains sedated and unable to answer questions. Nursing notes no physical agitation but does state that she's been sedated throughout. Mental Status Exam - Vital signs Last Vital Signs Temp 99.0 F 10/06/16 16:13 Pulse 90 10/06/16 16:13 Resp 20 10/06/16 16:40 BP 110/52 10/06/16 16:13 Pulse Ox 100 10/05/16 00:56 - Exam Orientation: person Affect: anxious Mood: other (no answer) Thought Process: Disoriented Perceptions: none Speech: minimal response Concentration: distractible Motor activity: restless Level of consciousness: sedated Assessment and Plan 31 yo BF with history of bipolar d/o and cocaine abuse presented to [facility] and gave . We have been asked to help manage the patient's mental illness. She was present with her family and permitted them to give information for the interview. The patient notes that she has a history of bipolar disorder. Currently the symptoms seem to be relatively present but not acute. Patient was sedated from the pain meds but made it clear she wished to care for the baby. The family is concerned over her not being compliant with her meds and her poor choices including recent use of cocaine. bipolar dx: patient will require seroquel and depakote but at this time she remains sedated and therefore I will discontinue these meds until she is more alert. He symptoms of edda/depression are not acutely active at this time. cocaine: patient will benefit from substance treatment on an outpatient basis alongside her mental health treatment - Patient Problems (1) Cocaine abuse Current Visit: Yes Status: Acute
[2016-10-07 02:28] LABS: Urine Drugs of Abuse Note Disclamer
[2016-10-07] MEDS: PERCOCET 5/325 PO PRN (06:05)
--- NOTE | 2016-10-07 11:32 | Discharge Summary ---
Providers - Providers Date of Admission: 10/04/16 20:54 Date of discharge: 10/07/16 Attending physician: LAURA PEREIRA 10/05/16 01:35 Consult to Case Management [CONS] Routine Services Needed at Discharge: Network Mgr Notified:: Dr. Dubose (Infectious Diease) Phone number called:: [phone] Was contact made?: Yes If yes, spoke with:: mathew Time called:: 08:08 10/05/16 07:59 Consult to Mental Health [CONS] Routine Reason For Exam: pt has hx of bipolar; drug use; seizures Place consult to:: jeannette Notified:: yes Phone number called:: [phone] Was contact made?: Yes 10/05/16 09:00 Consult to Physician [CONS] Routine Consulting Provider: DOROTA DUBOSE Reason For Exam: HIV+ Place consult to:: Dr. Dubose Notified:: Yes Phone number called:: [phone] Was contact made?: Yes If yes, spoke with:: Mathew Time called:: 08:08 Primary care physician: LAURA PEREIRA Hospitalization Reason for admission: active labor Procedure: section, bilateral tubal ligation, repeat low transverse Incision: normal, dry, intact Other procedures: other (psychiatry and infectious disease consults) Discharge diagnosis: delivery baby: male Pertinent studies: Head CT Hospital course: Please see H&P for details. She was admitted and underwent repeat section with bilateral tubal ligation without complications. Postoperatively the patient was evaluated by psychiatry due to history of bipolar disease and recommendation discharge medications were made and stressful patient to be follow out as outpatient. Indication was stopped the day prior to discharge to the patient's be been sleepy but recommendation was to continue medication as outpatient. She was evaluated by infectious disease to her positive HIV status , rule invasion was not to start and viral medication until patient returns follow-up as outpatient. Patient states she sees a Dr. Alvarenga and will follow -up resume treatment. Patient was admitted and underwent above procedure without complications. Her post operative course was benign she was afebrile throughout. Patient postoperative day 1 and 2 hematocrit was in an acceptable range. Patient had no orthostatic symptoms. Patient was tolerating regular diet and voiding without difficulty at time of discharge. Patient incision was healing well without evidence of infection. Condition at discharge: Good Disposition: DISCHARGED TO HOME OR SELFCARE - Discharge Diagnoses (1) 37 weeks gestation of Status: Resolved (2) Cocaine abuse Status: Acute (3) Maternal care for scar from previous delivery Status: Resolved Qualifiers: Previous delivery type: unspecified Qualified Code(s): O34.219 - Maternal care for unspecified type scar from previous delivery (4) Sterilization Status: Chronic (5) HIV disease Status: Chronic Plan - Discharge Medications Prescriptions: Divalproex Dr [DepaKOTE DR] 500 mg PO QDAY #30 tablet Lidocain2.5%/Prilocai2.5% [Emla] 5 gm TP ONCE #1 tube Ibuprofen [Motrin 800 MG tab] 800 mg PO TID PRN #30 tablet PRN Reason: Pain oxyCODONE /ACETAMINOPHEN [Percocet 5/325 mg] 1 - 2 tab PO Q4HR PRN #30 tablet PRN Reason: Pain Quetiapine Fumarate [Seroquel] 200 mg PO HS #20 tablet - Provider Discharge Summary Activity: no sex for 6 weeks, no heavy lifting 4 weeks, no strenuous exercise Diet: routine Instructions: routine Additional instructions: [] Smoking cessation referral if applicable(refer to patient education folder for contact #) [] Refer to [facility]'s [facility] Booklet Call your doctor immediately for: * Fever > 100.5 * Heavy vaginal bleeding ( >1 pad per hour) * Severe persistent headache * Shortness of breath * Reddened, hot, painful area to leg or breast * Drainage or odor from incision. * Keep incision clean and dry at all times and follow doctor's instructions regarding bathing/showering Patient office for fever chills nausea vomiting or pain uncontrolled by pain relief. Patient instructed no heavy lifting 6 weeks. No sex for 6 weeks. Patient has scheduled appointment on October 11 at 1:30 PM. - Follow up plan Follow up: LAURA PEREIRA MD [Primary Care Provider] - 7 Days
[2016-10-07 16:34] VITALS: BP 118/84
--- NOTE | 2016-10-07 18:46 | Event Note ---
Date: 10/07/16 [facility]. As event and recorded the patient was placed on [address] Eden the psychiatrist at that scene the patient is morning. Patient was not stable after the decision was made to not allow the baby to the patient. Also as noted the patient did leave hospital AGAINST MEDICAL ADVICE and also including security.
--- NOTE | 2016-10-07 19:42 | Event Note ---
Date: 10/07/16 Psychiatry was informed that patient left hospital [place] and was on a 1013. [facility] Police was contacted per her assigned RN.
== END 2016-10-07 16:30 | disposition home or self-care (01) | DRG 765 ==
LOC: TRG 18:53 → LD 20:54 → OB 10-05 01:17
PROVIDERS: ADMIT Obstetrics & Gynecology; ATTEND Obstetrics & Gynecology
PROC: 10D00Z1 Extraction of Products of Conception, Low, Open Approach (ICD-10-PCS; principal; 2016-10-05)
PROC: 0UL70CZ Occlusion of Bilateral Fallopian Tubes with Extraluminal Device, Open Approach (ICD-10-PCS; 2016-10-05)
PROC: 0JN80ZZ Release Abdomen Subcutaneous Tissue and Fascia, Open Approach (ICD-10-PCS; 2016-10-05)
DX: O34.211 Maternal care for low transverse scar from previous cesarean delivery (principal); O98.72 Human immunodeficiency virus [HIV] disease complicating childbirth; O99.324 Drug use complicating childbirth; F14.10 Cocaine abuse, uncomplicated; N85.8 Other specified noninflammatory disorders of uterus; O42.92 Full-term premature rupture of membranes, unspecified as to length of time between rupture and onset of labor; G40.909 Epilepsy, unspecified, not intractable, without status epilepticus; O77.0 Labor and delivery complicated by meconium in amniotic fluid; O99.344 Other mental disorders complicating childbirth; F31.9 Bipolar disorder, unspecified; O99.62 Diseases of the digestive system complicating childbirth; K66.0 Peritoneal adhesions (postprocedural) (postinfection); Z3A.37 37 weeks gestation of pregnancy; Z37.0 Single live birth; Z30.2 Encounter for sterilization
CPT/HCPCS: 36415; 70450; 80048; 80074; 80307; 81001; 82024; 85014; 85018; 85025; 85660; 86592; 86689; 86706; 86762; 86803; 86850; 86900; 86901; 87536; 87806; 88307; 90686; J0330; J0690; J1170; J1885; J2270; J2590; J2704; J2765; J3010; J3485; J7120

== ENCOUNTER 2017-02-07 13:51 | Emergency (ER) | payer MEDICAID ==
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
[2017-02-07] MEDS: BOOSTRIX IM ONE (14:10)
[2017-02-07] MEDS: ULTRAM PO ONE (14:30)
[2017-02-07] MEDS ORDERED: TRIPLE ANTIBIOTIC TP ONE (18:32)
[2017-02-07 19:27] VITALS: BP 114/78
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
== END 2017-02-07 18:40 | disposition home or self-care (01) ==
LOC: ED 13:51
DX: S81.832A Puncture wound without foreign body, left lower leg, initial encounter (principal); W34.09XA Accidental discharge from other specified firearms, initial encounter; Y93.9 Activity, unspecified; Y92.9 Unspecified place or not applicable; Y99.9 Unspecified external cause status
CPT/HCPCS: 36415; 72170; 84703; 90471; 90715; A6250

== ENCOUNTER 2017-04-02 09:58 | Emergency (ER) | payer MEDICAID ==
[2017-04-02 10:21] VITALS: BP 142/79
--- NOTE | 2017-04-02 12:00 | Emergency Department Report ---
ED Headache HPI - General Chief Complaint: Headache Stated Complaint: HEADACHE Time Seen by Provider: 04/02/17 11:21 Source: patient, family Exam Limitations: intoxication - History of Present Illness Initial Comments: Patient here reports that she is having a migraine headache for a couple weeks on and off. She says she took ibuprofen but it did not work. Patient and appears to be intoxicated and slurring her speech. She says she has a history of seizures and she is out of her seizure medication which is Depakote and she would like to have a refill. Patient said she does not have a primary care physician but she has a infectious disease doctor. Patient said she has HIV that was diagnosed this year after she had her baby and that she seen a infectious disease doctor on how old male and the last time that she saw the doctor was one month ago. She said she takes HIV medication but she doesn't remember what kind. She denies being on any illicit street drugs, prescription narcotic or drink at all call. Patient does not smell like alcohol. She is unsteady on her feet and appears a little bit sleepy. She reports that her last menstrual period was this month but she cannot remember the day on triage note it says 02/04/2017 but patient says she did not tell them that. She was last here in 02/07/2017 where she was prescribed Seroquel and tramadol and also Keflex. Patient said that she had a neurologist in the past for seizure but she has not followed up with any for a while. She said her last seizure was more than a year ago. She reports that her last them that she took Depakote was 2 days ago because she ran out. Denies any nausea or vomiting. Denies any fever or chills. Denies any abdominal pain or back pain. Denies any urinary burning frequency or urgency. Denies any cough or sore throat. Denies any chest pain or shortness of breath. Headache is located to the front of her head it comes and goes she said it's a 4 out of 10 and feels achy. Noted patient would previous visit this year where she was positive for cocaine in her urine drug screen. Timing/Duration: episodic, waxing and waning, other (ongoing for ongoing for over 2 weeks) Quality: mild, achy Head Injury Location: frontal Recent Head Trauma: occasional headaches Modifying Factors: improves with: rest Associated Symptoms: denies: confusion, fatigue, facial pain, fever/chills, flushing, loss of consciousness, nausea/vomiting, nasal congestion, nasal drainage, numbness in legs/feet, rash, seizures, sinus infection, stiff neck, vision changes, weakness Allergies/Adverse Reactions: Allergies No Known Allergies Allergy (Unverified 06/17/15 10:57) Home Medications: Ambulatory Orders Cephalexin [Keflex] 500 mg PO Q6HR #28 capsule 02/07/17 Ibuprofen [Motrin 800 MG tab] 800 mg PO Q8HR PRN #20 tablet 02/07/17 Quetiapine Fumarate [Seroquel] 100 mg PO HS 02/07/[address] [Depkaran Dr] 500 mg PO QDAY #30 tablet 04/02/17 Levofloxacin [Levaquin TAB] 500 mg PO QDAY #10 tablet 04/02/17 traMADol [Ultram 50 MG tab] 50 mg PO Q6HR PRN #12 tablet 04/02/17 ED Review of Systems ROS: Stated complaint: HEADACHE Other details as noted in HPI Comment: All other systems reviewed and negative Constitutional: no symptoms reported Eyes: denies: eye pain, eye discharge, vision change ENT: denies: ear pain, throat pain, congestion Respiratory: no symptoms reported Cardiovascular: denies: chest pain, palpitations, edema, syncope Gastrointestinal: denies: abdominal pain, nausea, vomiting, diarrhea, constipation, hematemesis, melena, hematochezia Genitourinary: denies: urgency, dysuria, frequency, hematuria, discharge, abnormal menses, dyspareunia Musculoskeletal: denies: back pain, joint swelling, arthralgia, myalgia Skin: denies: rash Neurological: headache. denies: weakness, numbness, paresthesias, confusion, vertigo ED Past Medical Hx - Past Medical History Previous Medical History?: Yes Hx Seizures: Yes (?? possible immediate phase 01/2015) Hx HIV: Yes - Surgical History Past Surgical History?: Yes Additional Surgical History: C/S x 4 / SURGERY FOR ECTOPIC - Family History Family history: hypertension - Social History Smoking Status: Current Every Day Smoker Substance Use Type: None - Medications Home Medications: Home Medications Medication Instructions Recorded Confirmed Last Taken Type Cephalexin [Keflex] 500 mg PO Q6HR #28 capsule 02/07/17 Unknown Rx Ibuprofen [Motrin 800 MG tab] 800 mg PO Q8HR PRN #20 tablet 02/07/17 Unknown Rx Quetiapine Fumarate [Seroquel] 100 mg PO HS 02/07/17 02/07/[address] [Chris Dr] 500 mg PO QDAY #30 tablet 04/02/17 Unknown Rx Levofloxacin [Levaquin TAB] 500 mg PO QDAY #10 tablet 04/02/17 Unknown Rx traMADol [Ultram 50 MG tab] 50 mg PO Q6HR PRN #12 tablet 04/02/17 Unknown Rx ED Physical Exam - General Limitations: No Limitations General appearance: in no apparent distress, other (patient appears drowsy but she awakes to verbal stimuli. She answers questions inappropriately) - Head Head exam: Present: atraumatic, normocephalic, normal inspection - Expanded Head Exam Expanded Head exam: Absent: laceration, abrasion, contusion, hematoma, racoon eyes, mendez's sign, general tenderness, tenderness of temporal artery, CSF rhinorrhea , CSF otorrhea - Eye Eye exam: Present: normal appearance, PERRL, EOMI. Absent: scleral icterus, conjunctival injection, nystagmus, periorbital swelling, periorbital tenderness Pupils: Present: normal accommodation - ENT ENT exam: Present: normal exam, normal orophraynx, mucous membranes moist, TM's normal bilaterally, normal external ear exam - Neck Neck exam: Present: normal inspection, full ROM. Absent: tenderness, meningismus, lymphadenopathy, thyromegaly - Respiratory Respiratory exam: Present: normal lung sounds bilaterally. Absent: respiratory distress, wheezes, rales, rhonchi, stridor, chest wall tenderness, accessory muscle use, decreased breath sounds, prolonged expiratory - Cardiovascular Cardiovascular Exam: Present: normal rhythm, bradycardia, normal heart sounds. Absent: systolic murmur, diastolic murmur - GI/Abdominal GI/Abdominal exam: Present: soft, normal bowel sounds. Absent: distended, tenderness, guarding, rebound, rigid, organomegaly, mass, bruit, pulsatile mass , hernia - Extremities Exam Extremities exam: Present: normal inspection, full ROM, normal capillary refill , other (no clubbing or cyanosis or edema noted to extremities. +2 pulses in all extremities.). Absent: tenderness, pedal edema, joint swelling, calf tenderness - Back Exam Back exam: Present: normal inspection, full ROM. Absent: tenderness, CVA tenderness (R), CVA tenderness (L), muscle spasm, paraspinal tenderness, vertebral tenderness, rash noted - Neurological Exam Neurological exam: Present: alert, oriented X3 (patient is alert and oriented 3 she is able to tell me her name, where she is, month and day. Her speech is altered.), abnormal gait (taylor unsteady and feet.), reflexes normal. Absent: motor sensory deficit - Expanded Neurological Exam Expanded Neurological exam: Absent: innattentive, memory loss-remote event, memory loss- recent event, ataxia, expressive aphasia, total aphasia, tremor, protecting the airway Patient oriented to: Present: person, place Speech: Absent: fluid speech (patient and with slurred speech suspect from intoxication from drugs) Cranial nerves: EOM's Intact: Normal, Gag Reflex: Normal, Tongue Deviation: Normal, Nystagmus: Normal, Facial Sensation: Normal Cerebellar function: Finger to Nose: Abnormal Right, Abnormal Left, Romberg: Abnormal Right, Abnormal Left Upper motor neuron: Pronator Drift: Abnormal Right, Abnormal Left Sensory exam: Upper Extremity Light Touch: Normal, Upper Extremity Pin Prick: Normal, Upper Extremity Temperature: Normal, UE 2 Point Discrimination: Normal, Lower Extremity Light Touch: Normal, Lower Extremity Pin Prick: Normal, Lower Extremity Temperature: Normal, LE 2 Point Discrimination: Normal Motor strength exam: RUE: 5, LUE: 5, RLE: 5, LLE: 5 DTR: bicep (R): 2+, bicep (L): 2+, tricep (R): 2+, tricep (L): 2+, knee (R): 2+ , knee (L): 2+, ankle (R): 2+, ankle (L): 2+ Best Eye Response (Naima): (4) open spontaneously Best Motor Response (Naima): (6) obeys commands Best Verbal Response ([place]): (4) confused conversation [place] Total: 14 - Psychiatric Psychiatric exam: Present: flat affect - Skin Skin exam: Present: warm, dry, intact, normal color. Absent: rash ED Course Vital Signs 04/02/17 10:14 Temperature 97.5 F L Pulse Rate 53 L Respiratory 16 Rate Blood Pressure 142/79 Blood Pressure 142/79 [Left] O2 Sat by Pulse 100 Oximetry - Reevaluation(s) Reevaluation #1: 04/02/17 14:48 Patient given Rocephin 1 g IM for her urinary tract infection without any adverse reaction. Serum glucose at 52. Patient orally challenged and she was able to tolerate 4 cups of cranberry juice without any nausea or vomiting. She is able to eat without any difficulties. Urine drug screen positive for cocaine and marijuana and patient had denied that she use any illicit drugs prior to urine collection. I discussed her results of labs, urinalysis and CT scan of the head with her. She had previous lesion that was seen on CT scan of the head in October and patient is still with lesion but unchanged. Reevaluation #2: 04/02/17 15:49 Patient was able to tolerate oral liquids and solid food in emergency room. She says she feels better and her blood sugar is greater than 100. I discussed case with attending physician in emergency room along with CT scan results and lab findings and he agrees the patient can be discharged home to follow-up with her infectious disease doctor. Patient came in with neurological findings for slurred speech, positive Romberg and pronator drift suspect from cocaine abuse. Upon reevaluation after patient ate, she was able to tolerate oral fluids and her blood sugar went from 50 to >120, he was more awake and able to ambulate without any difficulties. Her gait is normal and negative Romberg and pronator drift. I spoke with Dr. Reyes who is attending doctor in emergency room and he agrees that the patient can be discharged home to follow up with her infectious disease doctor ED Medical Decision Making - Lab Data Result diagrams: 04/02/17 12:22 04/02/17 12:22 Lab Results 04/02/17 04/02/17 04/02/17 Range/Units 12:22 12:22 12:22 WBC 3.8 L (4.5-11.0) K/mm3 RBC 5.39 H (3.65-5.03) M/mm3 Hgb 13.8 (10.1-14.3) gm/dl Hct 42.8 (30.3-42.9) % MCV 79 (79-97) fl MCH 26 L (28-32) pg MCHC 32 (30-34) % RDW 17.2 H (13.2-15.2) % Plt Count 196 (140-440) K/mm3 Lymph % (Auto) 46.9 H (13.4-35.0) % [place] % (Auto) 12.5 H (0.0-7.3) % Eos % (Auto) 1.5 (0.0-4.3) % Baso % (Auto) 0.5 (0.0-1.8) % Lymph # 1.8 (1.2-5.4) K/mm3 [place] # 0.5 (0.0-0.8) K/mm3 Eos # 0.1 (0.0-0.4) K/mm3 Baso # 0.0 (0.0-0.1) K/mm3 Seg Neutrophils % 38.6 L (40.0-70.0) % Seg Neutrophils # 1.5 L (1.8-7.7) K/mm3 Sodium 136 L (137-145) mmol/L Potassium 4.6 (3.6-5.0) mmol/L Chloride 99.2 (98-107) mmol/L Carbon Dioxide 21 L (22-30) mmol/L Anion Gap 20 mmol/L BUN 15 (7-17) mg/dL Creatinine 1.0 (0.7-1.2) mg/dL Estimated GFR > 60 ml/min BUN/Creatinine Ratio 15.00 % Glucose 52 L (65-100) mg/dL POC Glucose (70-105) Calcium 9.1 (8.4-10.2) mg/dL Total Bilirubin 0.50 (0.1-1.2) mg/dL Direct Bilirubin < 0.2 (0-0.2) mg/dL AST 21 (5-40) units/L ALT 19 (7-56) units/L Alkaline Phosphatase 51 (35-129) units/L Total Protein 8.3 H (6.3-8.2) g/dL Albumin 4.6 (3.9-5) g/dL Albumin/Globulin Ratio 1.2 % HCG, Qual Negative (Negative) Urine Color (Yellow) Urine Turbidity (Clear) Urine pH (5.0-7.0) Ur Specific [place] (1.003-1.030) Urine Protein (Negative) mg/dL Urine Glucose (UA) (Negative) mg/dL Urine Ketones (Negative) mg/dL Urine Blood (Negative) Urine Nitrite (Negative) Urine Bilirubin (Negative) Urine Urobilinogen (<2.0) mg/dL Ur Leukocyte Esterase (Negative) Urine WBC (Auto) (0.0-6.0) /HPF Urine RBC (Auto) (0.0-6.0) /HPF U Epithel Cells (Auto) (0-13.0) /HPF Urine Bacteria (Auto) (Negative) /HPF Urine Mucus /HPF Urine Opiates Screen Urine Methadone Screen Ur Barbiturates Screen Ur Phencyclidine Scrn Ur Amphetamines Screen U Benzodiazepines Scrn Urine Cocaine Screen U Marijuana (THC) Screen Drugs of Abuse Note 04/02/17 04/02/17 04/02/17 Range/Units 14:55 Unknown Unknown WBC (4.5-11.0) K/mm3 RBC (3.65-5.03) M/mm3 Hgb (10.1-14.3) gm/dl Hct (30.3-42.9) % MCV (79-97) fl MCH (28-32) pg MCHC (30-34) % RDW (13.2-15.2) % Plt Count (140-440) K/mm3 Lymph % (Auto) (13.4-35.0) % [place] % (Auto) (0.0-7.3) % Eos % (Auto) (0.0-4.3) % Baso % (Auto) (0.0-1.8) % Lymph # (1.2-5.4) K/mm3 [place] # (0.0-0.8) K/mm3 Eos # (0.0-0.4) K/mm3 Baso # (0.0-0.1) K/mm3 Seg Neutrophils % (40.0-70.0) % Seg Neutrophils # (1.8-7.7) K/mm3 Sodium (137-145) mmol/L Potassium (3.6-5.0) mmol/L Chloride (98-107) mmol/L Carbon Dioxide (22-30) mmol/L Anion Gap mmol/L BUN (7-17) mg/dL Creatinine (0.7-1.2) mg/dL Estimated GFR ml/min BUN/Creatinine Ratio % Glucose (65-100) mg/dL POC Glucose 163 H (70-105) Calcium (8.4-10.2) mg/dL Total Bilirubin (0.1-1.2) mg/dL Direct Bilirubin (0-0.2) mg/dL AST (5-40) units/L ALT (7-56) units/L Alkaline Phosphatase (35-129) units/L Total Protein (6.3-8.2) g/dL Albumin (3.9-5) g/dL Albumin/Globulin Ratio % HCG, Qual (Negative) Urine Color Yellow (Yellow) Urine Turbidity Clear (Clear) Urine pH 5.0 (5.0-7.0) Ur Specific [place] 1.025 (1.003-1.030) Urine Protein <15 mg/dl (Negative) mg/dL Urine Glucose (UA) Neg (Negative) mg/dL Urine Ketones 20 (Negative) mg/dL Urine Blood Neg (Negative) Urine Nitrite Neg (Negative) Urine Bilirubin Neg (Negative) Urine Urobilinogen < 2.0 (<2.0) mg/dL Ur Leukocyte Esterase Mod (Negative) Urine WBC (Auto) 20.0 H (0.0-6.0) /HPF Urine RBC (Auto) 4.0 (0.0-6.0) /HPF U Epithel Cells (Auto) 6.0 (0-13.0) /HPF Urine Bacteria (Auto) 1+ (Negative) /HPF Urine Mucus Few /HPF Urine Opiates Screen Presumptive negative Urine Methadone Screen Presumptive negative Ur Barbiturates Screen Presumptive negative Ur Phencyclidine Scrn Presumptive negative Ur Amphetamines Screen Presumptive negative U Benzodiazepines Scrn Presumptive negative Urine Cocaine Screen Presumptive positive U Marijuana (THC) Screen Presumptive positive Drugs of Abuse Note Disclamer Urine culture sent - Radiology Data Radiology results: report reviewed CT scan of the head reveals stable appearance of 2 small right intraventricular soft tissue masses. These may represent ependymoma or other benign lesions. There are no evidence of hydrocephalus. No acute findings. Patient had previous CT scan of the brain without IV contrast in October 2016 and she had similar findings and radiologist reports that there has not been any change in size or configuration since previous study. There is no evidence of acute hemorrhage or infarct. Posterior fossa is normal. There are no extra-axial collections. Ventricles are normal in size and contour. No calcifications Critical care attestation.: If time is entered above; I have spent that time in minutes in the direct care of this critically ill patient, excluding procedure time. ED Disposition Clinical Impression: History of HIV infection, Polysubstance abuse, Mild dehydration, Ketonuria, Acute cystitis without hematuria, H/O brain tumor, Encounter for medication refill Headache Qualifiers: Headache type: unspecified Headache chronicity pattern: episodic headache Intractability: not intractable Qualified Code(s): R51 - Headache Disposition: DC-01 TO HOME OR SELFCARE Is pt being admited?: No Does the pt Need Aspirin: No Condition: Stable Instructions: Urinary Tract Infection in Women (ED), Polysubstance Abuse (ED), Acute Headache (ED), Epilepsy (ED), Dehydration (ED) Additional Instructions: Please stop he is then cocaine and marijuana as these substances are present in your urine. Try to stop smoking and see discharge instructions on polysubstance abuse and stop smoking. Please follow-up with your infectious disease doctor call tomorrow to schedule an appointment for follow-up visit in 2 days These increased her fluid intake. 2-3 L of water and or Gatorade daily. Your urine shows that you have bacterial infection and your also dehydrated. Please take antibiotic for urinary tract infection Your CT scan show that you had brain mass in your right brain area and this has not changed from CT scan that he had in October 2016. Please follow-up with neurologist for chronic seizure and headaches. Please take your antiseizure medication as prescribed Prescriptions: Divalproex [Chris Phillips] 500 mg PO QDAY #30 tablet Levofloxacin [Levaquin TAB] 500 mg PO QDAY #10 tablet traMADol [Ultram 50 MG tab] 50 mg PO Q6HR PRN #12 tablet PRN Reason: Pain Referrals: Your, Infectious Disease Physician [Other] - 04/03/17 [facility] [place] [Outside] - 04/03/17 Forms: Accompanied Note
[2017-04-02 12:30] LABS: Urine Drugs of Abuse Note Disclamer
[2017-04-02 12:42] LABS: Bacteria,Urine 1+ /HPF (Negative); Bilirubin,Urine NEG (Negative); Blood,Urine NEG (Negative); Ketones,Urine 20 mg/dL (Negative); Leukocyte Esterase,Urine MOD (Negative); Mucus,Urine FEW /HPF; Nitrite,Urine NEG (Negative); Protein,Urine <15 mg/dL mg/dL (Negative); Urobilinogen,Urine < 2.0 mg/dL (<2.0)
[2017-04-02 12:53] LABS: Basophils % (Auto) 0.5 % (0.0-1.8); Eosinophils % (Auto) 1.5 % (0.0-4.3); Hematocrit 42.8 % (30.3-42.9); Hemoglobin 13.8 gm/dl (10.1-14.3); Mean Corpuscular HGB Conc 32 % (30-34); Mean Corpuscular Hemoglobin 26 pg (28-32); Mean Corpuscular Volume 79 fl (79-97); Platelet Count 196 K/mm3 (140-440); Red Blood Count 5.39 M/mm3 (3.65-5.03); Red Cell Distribution Width 17.2 % (13.2-15.2); White Blood Count 3.8 K/mm3 (4.5-11.0)
[2017-04-02 13:30] LABS: Alanine Aminotransferase 19 units/L (7-56); Albumin 4.6 g/dL (3.9-5); Albumin/Globulin Ratio 1.2 %; Alkaline Phosphatase 51 units/L (35-129); Anion Gap 20 mmol/L; Blood Urea Nitrogen 15 mg/dL (7-17); Calcium 9.1 mg/dL (8.4-10.2); Carbon Dioxide 21 mmol/L (22-30); Chloride 99.2 mmol/L (98-107); Glucose 52 mg/dL (65-100); Potassium 4.6 mmol/L (3.6-5.0); Sodium 136 mmol/L (137-145); Total Protein 8.3 g/dL (6.3-8.2)
[2017-04-02 13:39] LABS: Bilirubin,Direct < 0.2 mg/dL (0-0.2)
[2017-04-02] MEDS ORDERED: ROCEPHIN/NS 1 GM/50 ML 1 GM/50 ML BAG IV ONE (13:52)
[2017-04-02] MEDS ORDERED: D5NS 1,000 ML IV SCH (14:00)
[2017-04-02] MEDS ORDERED: XYLOCAINE 1% MPF 5 mL INFILTRATI ONE (14:04)
[2017-04-02] MEDS ORDERED: ROCEPHIN IM ONE (14:04)
--- NOTE | 2017-04-02 14:06 | Cat Scan Report ---
Cranial CT without contrast. History: Headache with abnormal neurological exam. Findings: Comparison is made to a previous study performed on October 06, 2016. There is no evidence of acute hemorrhage or infarct. The posterior fossa is normal. 2 rounded soft tissue densities are again seen in the right lateral ventricle, occipital horn. These have not changed in size or configuration since the previous study, both of which measure just under 1 cm in maximum dimension. there is no calcification. The Ventricles are normal in size and contour. There are no extra-axial collections. Impression: 1. No acute findings. 2. Stable appearance of 2 small right intraventricular soft tissue masses. These may represent ependymomas or other benign lesions. There is no evidence of hydrocephalus.
== END 2017-04-02 16:32 | disposition home or self-care (01) ==
LOC: ED 09:58
DX: R51 Headache (principal); E86.0 Dehydration; N30.00 Acute cystitis without hematuria; R82.4 Acetonuria; F19.10 Other psychoactive substance abuse, uncomplicated; D49.6 Neoplasm of unspecified behavior of brain; F17.200 Nicotine dependence, unspecified, uncomplicated
CPT/HCPCS: 36415; 70450; 80048; 80074; 80307; 81001; 82962; 84703; 85025; 87086; 96372; 99284; J0696; J7042

== ENCOUNTER 2017-07-23 10:09 | Emergency (ER) | payer MEDICAID | END 2017-07-23 11:31 | disposition left against medical advice (07) | LOC: ED 10:09 | DX: R51 Headache (principal); M79.1 Myalgia; Z53.21 Procedure and treatment not carried out due to patient leaving prior to being seen by health care provider ==

== ENCOUNTER 2017-07-23 13:34 | Emergency (ER) | payer MEDICAID ==
--- NOTE | 2017-07-23 18:32 | Emergency Department Report ---
Minor Respiratory - HPI Chief Complaint: Upper Respiratory Infection Stated Complaint: FLU SYMPTOMS Time Seen by Provider: 07/23/17 18:09 Duration: 4 Days Pain Location: Other (patient with frontal sinus pain as well as generalized body aches. Pain is 6 out of 10) Severity: moderate Minor Respiratory: Yes Rhinorrhea (yellowish-green), Yes Sore Throat, Yes Able to Tolerate Fluids, Yes Cough (productive of yellow sputum), Yes Fever ( subjective), No Ear Pain, No Sick Contacts, No Hemoptysis, No Chest Pain, No Shortness of Breath ED Review of Systems ROS: Stated complaint: FLU SYMPTOMS Other details as noted in HPI Comment: All other systems reviewed and negative ED Past Medical Hx - Past Medical History Hx Seizures: Yes (?? possible immediate phase 01/2015) Hx HIV: Yes - Surgical History Additional Surgical History: C/S x 4 / SURGERY FOR ECTOPIC - Social History Smoking Status: Current Every Day Smoker Substance Use Type: None - Medications Home Medications: Home Medications Medication Instructions Recorded Confirmed Last Taken Type Cephalexin [Keflex] 500 mg PO Q6HR #28 capsule 02/07/17 Unknown Rx Ibuprofen [Motrin 800 MG tab] 800 mg PO Q8HR PRN #20 tablet 02/07/17 Unknown Rx Quetiapine Fumarate [Seroquel] 100 mg PO HS 02/07/17 02/07/17 Unknown History Divalproex [Chris Phillips] 500 mg PO QDAY #30 tablet 04/02/17 Unknown Rx Levofloxacin [Levaquin TAB] 500 mg PO QDAY #10 tablet 04/02/17 Unknown Rx traMADol [Ultram 50 MG tab] 50 mg PO Q6HR PRN #12 tablet 04/02/17 Unknown Rx ALBUTEROL Inhaler [ProAir HFA 2 puff IH QID PRN #1 inhalation 07/23/17 Unknown Rx Inhaler] Amoxicillin/Potassium Clav 1 each PO BID #14 tablet 07/23/17 Unknown Rx [Augmentin 875-125 Tablet] Fluticasone [Flonase] 1 spray NS QDAY #1 bottle 07/23/17 Unknown Rx HYDROcodone/APAP 5-325 [Wilson 1 each PO Q4HR PRN #12 tablet 07/23/17 Unknown Rx 5/325] predniSONE [Deltasone] 20 mg PO QDAY #5 tab 01/17/18 Unknown Rx Minor Respiratory Exam - Exam General: Vital signs noted. No distress. Alert and acting appropriately. HEENT: Yes Moist Mucous Membranes, Yes Frontal Tenderness, No Pharyngeal Erythema, No Pharyngeal Exudates, No Rhinorrhea, No Conjuctival Injection, No Maxillary Tenderness Ear: Neither TM Bulge, Neither TM Erythema, Neither EAC Pain, Neither EAC Discharge Neck: Yes Supple, No Adenopathy Lungs: Yes Good Air Exchange, No Wheezes, No Ronchi, No Stridor, No Cough, No Labored Respirations, No Retractions, No Use of Accessory Muscles, No Other Abnormal Lung Sounds Heart: Yes Regular, No Murmur Abdomen: Yes Normal Bowel Sounds, No Tenderness, No Peritoneal Signs Skin: No Rash, No Edema Neurologic: Alert and oriented, no deficits. Musculoskeletal: Unremarkable. ED Course Vital Signs 07/23/17 14:08 Temperature 97.6 F Pulse Rate 78 Respiratory 18 Rate Blood Pressure 143/90 O2 Sat by Pulse 100 Oximetry ED Medical Decision Making - Medical Decision Making Patient is a 32-year-old [place] female who presented with upper respiratory symptoms as well as sinus tenderness and sinus drainage. Patient will be started on amoxicillin and given meds for symptomatic relief. Critical care attestation.: If time is entered above; I have spent that time in minutes in the direct care of this critically ill patient, excluding procedure time. ED Disposition Clinical Impression: Upper respiratory infection Acute sinusitis Qualifiers: Sinusitis location: frontal Recurrence: non-recurrent Qualified Code(s): J01.10 - Acute frontal sinusitis, unspecified Disposition: DC-01 TO HOME OR SELFCARE Is pt being admited?: No Does the pt Need Aspirin: No Condition: Stable Instructions: Sinusitis (ED), Acute Bronchitis (ED) Prescriptions: ALBUTEROL Inhaler [ProAir HFA Inhaler] 2 puff IH QID PRN #1 inhalation PRN Reason: Shortness Of Breath Amoxicillin/Potassium Clav [Augmentin 875-125 Tablet] 1 each PO BID #14 tablet Fluticasone [Flonase] 1 spray NS QDAY #1 bottle HYDROcodone/APAP 5-325 [Wilson 5/325] 1 each PO Q4HR PRN #12 tablet PRN Reason: Pain predniSONE [Deltasone] 20 mg PO QDAY #5 tab Referrals: PRIMARY CARE,MD [Primary Care Provider] - 3-5 Days
[2017-07-23 18:50] VITALS: BP 120/84
== END 2017-07-23 18:52 | disposition home or self-care (01) ==
LOC: ED 13:34
DX: J01.10 Acute frontal sinusitis, unspecified (principal); J06.9 Acute upper respiratory infection, unspecified; F17.200 Nicotine dependence, unspecified, uncomplicated; Z21 Asymptomatic human immunodeficiency virus [HIV] infection status
CPT/HCPCS: 99282

== ENCOUNTER 2017-09-30 00:26 | Emergency (ER) | payer SELFPAY ==
[2017-09-30] MEDS ORDERED: ASPIRIN PO ONE (00:50)
[2017-09-30 01:49] LABS: Basophils % (Auto) 0.3 % (0.0-1.8); Hematocrit 39.7 % (30.3-42.9); Lymphocytes # (Auto) 1.5 K/mm3 (1.2-5.4); Mean Corpuscular HGB Conc 33 % (30-34); Mean Corpuscular Hemoglobin 27 pg (28-32); Mean Corpuscular Volume 81 fl (79-97); Monocytes # (Auto) 0.4 K/mm3 (0.0-0.8); Monocytes % (Auto) 8.3 % (0.0-7.3); Platelet Count 264 K/mm3 (140-440); Red Blood Count 4.92 M/mm3 (3.65-5.03); Red Cell Distribution Width 14.8 % (13.2-15.2)
[2017-09-30 01:53] LABS: BUN/Creatinine Ratio 14; Blood Urea Nitrogen 11 mg/dL (7-17); Calcium 8.6 mg/dL (8.4-10.2); Hemolysis Index 8
--- NOTE | 2017-09-30 08:02 | XRay Report ---
AP CHEST : 09/30/17 CLINICAL: Chest pain. COMPARISON:None FINDINGS: Normal heart and pulmonary vessels. The lungs are normally expanded and clear. The bones and soft tissues are unremarkable. IMPRESSION: Normal chest.
[2017-09-30] MEDS ORDERED: ASPIRIN ONE (08:20)
[2017-09-30 08:36] LABS: Bilirubin,Urine NEG (Negative); Blood,Urine NEG (Negative); Color,Urine Yellow (Yellow); Mucus,Urine FEW /HPF; Protein,Urine <15 mg/dL mg/dL (Negative); Urobilinogen,Urine < 2.0 mg/dL (<2.0)
[2017-09-30 08:42] LABS: Amphetamine Screen,Urine PRESUMPTIVE NEGATIVE; Benzodiazepines Screen,Urine PRESUMPTIVE NEGATIVE; Methadone Screen,Urine PRESUMPTIVE NEGATIVE; Opiate Screen,Urine PRESUMPTIVE NEGATIVE
[2017-09-30 08:48] LABS: Bacteria,Urine 1+ /HPF (Negative)
[2017-09-30 09:28] LABS: Cannabinoid Screen,Urine PRESUMPTIVE POSITIVE; Cocaine Screen,Urine PRESUMPTIVE POSITIVE
--- NOTE | 2017-09-30 10:05 | Emergency Department Report ---
ED Chest Pain HPI - General Chief Complaint: Chest Pain Stated Complaint: CHEST PAIN Time Seen by Provider: 09/30/17 07:20 Source: patient Mode of arrival: Ambulatory Limitations: No Limitations - History of Present Illness Initial Comments: Patient related chest pain since 11:30 last night when she arrived at triage. However, on arrival when I saw her at about 6:30 in the morning she had no complaints. She simply wanted to sleep. Not in any active chest pain. When asked if she had been abusing drugs she did not want to answer. She basically was resting comfortably and did not want to be disturbed. She denies shortness of breath or cough to triage. She denied fever or chills to me. History is somewhat limited secondary to poor cooperation from the patient. MD Complaint: chest pain Severity scale (0 -10): 5 - Related Data Previous Rx's Medication Instructions Recorded Last Taken Type Cefuroxime [Ceftin] 250 mg PO Q12H #14 tablet 09/30/17 Unknown Rx Allergies Allergy/AdvReac Type Severity Reaction Status Date / Time No Known Allergies Allergy Verified 07/23/17 14:08 Heart Score - HEART Score History: Slightly suspicious EKG: Normal Age: < 45 Risk factors: 1-2 risk factors Troponin: < normal limit HEART Score: 1 - Critical Actions Critical Actions: 0-3 pts:0.9-1.7%risk of adverse cardiac event.Candidate for discharge ED Review of Systems ROS: Stated complaint: CHEST PAIN Other details as noted in HPI Comment: All other systems reviewed and negative ED Past Medical Hx - Past Medical History Previous Medical History?: No Hx Seizures: Yes (?? possible immediate phase 01/2015) Hx HIV: Yes - Surgical History Past Surgical History?: Yes Additional Surgical History: C/S x 5 / SURGERY FOR ECTOPIC - Social History Smoking Status: Current Every Day Smoker Substance Use Type: None - Medications Home Medications: Home Medications Medication Instructions Recorded Confirmed Last Taken Type Cefuroxime [Ceftin] 250 mg PO Q12H #14 tablet 09/30/17 Unknown Rx ED Physical Exam - General Limitations: Other (lack of patient cooperation) General appearance: alert, in no apparent distress - Head Head exam: Present: atraumatic, normocephalic - Eye Eye exam: Present: normal appearance, PERRL, EOMI. Absent: scleral icterus - ENT ENT exam: Present: mucous membranes moist - Neck Neck exam: Present: normal inspection. Absent: tenderness, meningismus - Respiratory Respiratory exam: Present: normal lung sounds bilaterally. Absent: respiratory distress - Cardiovascular Cardiovascular Exam: Present: regular rate, normal rhythm. Absent: systolic murmur, diastolic murmur, rubs, gallop - GI/Abdominal GI/Abdominal exam: Present: soft, normal bowel sounds. Absent: distended, tenderness, guarding, rebound, rigid - Extremities Exam Extremities exam: Present: normal inspection - Back Exam Back exam: Present: normal inspection - Neurological Exam Neurological exam: Present: oriented X3, CN II-XII intact (as testable), other ( poorly cooperative). Absent: motor sensory deficit - Psychiatric Psychiatric exam: Present: normal mood, anxious, flat affect - Skin Skin exam: Present: warm, dry, intact, normal color. Absent: rash ED Course Vital Signs 09/30/17 09/30/17 09/30/17 00:44 06:11 07:32 Temperature 97.9 F 98.0 F Pulse Rate 80 55 L 63 Respiratory 20 20 Rate Blood Pressure 125/66 Blood Pressure 117/63 [Right] O2 Sat by Pulse 99 100 Oximetry 09/30/17 09/30/17 07:33 07:34 Temperature 97.6 F Pulse Rate 63 Respiratory 18 18 Rate Blood Pressure Blood Pressure 121/71 [Right] O2 Sat by Pulse 98 98 Oximetry - Reevaluation(s) Reevaluation #1: Patient was noted to have a possible UTI. She will be given an antibiotic. She will be placed on Ceftin and a urine culture will be pending. 09/30/17 10:10 Reevaluation #2: On reexam patient not complaining of chest pain. She looks comfortable. She is speaking coherently. She is denying cocaine abuse. However her urine is positive she is referred to appropriate resources. 09/30/17 10:42 ED Medical Decision Making - Lab Data Result diagrams: 09/30/17 01:10 09/30/17 01:10 Laboratory Results - last 24 hr 09/30/17 09/30/17 09/30/17 01:10 01:10 07:08 WBC 5.2 RBC 4.92 Hgb 13.0 Hct 39.7 MCV 81 MCH 27 L MCHC 33 RDW 14.8 Plt Count 264 Lymph % (Auto) 29.0 Hartley % (Auto) 8.3 H Eos % (Auto) 1.0 Baso % (Auto) 0.3 Lymph # 1.5 Hartley # 0.4 Eos # 0.0 Baso # 0.0 Seg Neutrophils % 61.4 Seg Neutrophils # 3.2 Sodium 138 Potassium 4.3 Chloride 103.9 Carbon Dioxide 22 Anion Gap 16 BUN 11 Creatinine 0.8 Estimated GFR > 60 BUN/Creatinine Ratio 14 Glucose 107 H Calcium 8.6 Troponin T < 0.010 < 0.010 Urine Color Urine Turbidity Urine pH Ur Specific Dows Urine Protein Urine Glucose (UA) Urine Ketones Urine Blood Urine Nitrite Urine Bilirubin Urine Urobilinogen Ur Leukocyte Esterase Urine WBC (Auto) Urine RBC (Auto) U Epithel Cells (Auto) Urine Bacteria (Auto) Urine Mucus Urine Opiates Screen Urine Methadone Screen Ur Barbiturates Screen Ur Phencyclidine Scrn Ur Amphetamines Screen U Benzodiazepines Scrn Urine Cocaine Screen U Marijuana (THC) Screen Drugs of Abuse Note 09/30/17 09/30/17 08:11 08:11 WBC RBC Hgb Hct MCV MCH MCHC RDW Plt Count Lymph % (Auto) Hartley % (Auto) Eos % (Auto) Baso % (Auto) Lymph # Hartley # Eos # Baso # Seg Neutrophils % Seg Neutrophils # Sodium Potassium Chloride Carbon Dioxide Anion Gap BUN Creatinine Estimated GFR BUN/Creatinine Ratio Glucose Calcium Troponin T Urine Color Yellow Urine Turbidity Clear Urine pH 6.0 Ur Specific Dows 1.014 Urine Protein <15 mg/dl Urine Glucose (UA) Neg Urine Ketones Neg Urine Blood Neg Urine Nitrite Neg Urine Bilirubin Neg Urine Urobilinogen < 2.0 Ur Leukocyte Esterase Lg Urine WBC (Auto) 33.0 H Urine RBC (Auto) 18.0 U Epithel Cells (Auto) 7.0 Urine Bacteria (Auto) 1+ Urine Mucus Few Urine Opiates Screen Presumptive negative Urine Methadone Screen Presumptive negative Ur Barbiturates Screen Presumptive negative Ur Phencyclidine Scrn Presumptive negative Ur Amphetamines Screen Presumptive negative U Benzodiazepines Scrn Presumptive negative Urine Cocaine Screen Presumptive positive U Marijuana (THC) Screen Presumptive positive Drugs of Abuse Note Disclamer - EKG Data -: EKG Interpreted by Me EKG shows normal: sinus rhythm, axis, intervals, QRS complexes, ST-T waves Rate: normal - EKG Data Interpretation: no acute changes - Radiology Data Radiology results: report reviewed interpreted by me: Chest x-ray no acute process Critical care attestation.: If time is entered above; I have spent that time in minutes in the direct care of this critically ill patient, excluding procedure time. ED Disposition Clinical Impression: Atypical chest pain, Polysubstance abuse UTI (urinary tract infection) Qualifiers: Urinary tract infection type: site unspecified Hematuria presence: with hematuria Qualified Code(s): N39.0 - Urinary tract infection, site not specified ; R31.9 - Hematuria, unspecified Disposition: TO HOME OR SELFCARE Is pt being admited?: No Does the pt Need Aspirin: No Condition: Stable Instructions: Chest Pain (ED), Urinary Tract Infection in Women (ED), Polysubstance Abuse (ED) Additional Instructions: [facility]up with [facility]. Rx Ceftin for UTI. Prescriptions: Cefuroxime [Ceftin] 250 mg PO Q12H #14 tablet Referrals: ANTONIO TORRES MD [Primary Care Provider] - 3-5 Days [facility] [Provider Group] - 2-3 Days [place] [Outside] - 2-3 Days Time of Disposition: 10:45
[2017-09-30 10:39] VITALS: BP 148/98
== END 2017-09-30 11:07 | disposition home or self-care (01) ==
LOC: ED 00:26
DX: R07.89 Other chest pain (principal); N39.0 Urinary tract infection, site not specified; F19.10 Other psychoactive substance abuse, uncomplicated; F17.200 Nicotine dependence, unspecified, uncomplicated
CPT/HCPCS: 36415; 71045; 80048; 80307; 81001; 84484; 85025; 93005; 93010; 99284

== ENCOUNTER 2020-01-22 09:09 | Emergency (ER) | payer MEDICAID, SELFPAY ==
[2020-01-22] MEDS ORDERED: ACETAMINOPHEN 325 MG TAB PO ONE (13:27)
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
--- NOTE | 2020-01-22 14:48 | Ultrasound Report ---
ULTRASOUND OBSTETRIC INDICATION: , abd pain. TECHNIQUE: Transvaginal. COMPARISON: Pelvic ultrasound from 08/15/2016. FINDINGS: GESTATIONAL SAC: Not seen. YOLK SAC: Not seen. EMBRYO/FETUS: Not seen. UTERUS: Probable subcentimeter fibroids are seen along the uterine body measuring up to 8 mm. No othe r significant abnormality. ADNEXA: There is a complex solid and cystic lesion arising from the right ovary measuring 5.0 x 4.9 x 4.6 cm without internal color flow. No other significant abnormality. FREE FLUID: None. ADDITIONAL FINDINGS: None. IMPRESSION: 1. No sonographic evidence of an intrauterine or ectopic . 2. Complex indeterminate right ovarian lesion as above. A follow-up pelvic ultrasound in 6-8 weeks is recommended. Signer Name: Devin Cota MD Signed: 01/22/2020 2:44 PM Workstation Name: [id number]
[2020-01-22 15:17] LABS: Basophils % (Auto) 0.5 % (0.0-1.8); Eosinophils # (Auto) 0.1 K/mm3 (0.0-0.4); Eosinophils % (Auto) 2.1 % (0.0-4.3); Hematocrit 40.5 % (30.3-42.9); Hemoglobin 13.1 gm/dl (10.1-14.3); Lymphocytes # (Auto) 0.9 K/mm3 (1.2-5.4); Lymphocytes % (Auto) 34.5 % (13.4-35.0); Mean Corpuscular HGB Conc 32 % (30-34); Mean Corpuscular Volume 81 fl (79-97); Monocytes # (Auto) 0.4 K/mm3 (0.0-0.8); Monocytes % (Auto) 13.3 % (0.0-7.3); Platelet Count 215 K/mm3 (140-440); Red Cell Distribution Width 16.3 % (13.2-15.2)
[2020-01-22 15:47] LABS: Alanine Aminotransferase 21 units/L (7-56); Albumin 4.2 g/dL (3.9-5); BUN/Creatinine Ratio 13; Blood Urea Nitrogen 9 mg/dL (7-17); Hemolysis Index 13
[2020-01-22 17:00] LABS: Bilirubin,Urine NEG (Negative); Blood,Urine NEG (Negative); Color,Urine Colorless (Yellow); Mucus,Urine FEW /HPF; Protein,Urine <15 mg/dL mg/dL (Negative); Urobilinogen,Urine < 2.0 mg/dL (<2.0)
[2020-01-22 17:08] LABS: Amphetamine Screen,Urine PRESUMPTIVE POSITIVE; Benzodiazepines Screen,Urine PRESUMPTIVE NEGATIVE; Cannabinoid Screen,Urine PRESUMPTIVE NEGATIVE; Cocaine Screen,Urine PRESUMPTIVE NEGATIVE; Methadone Screen,Urine PRESUMPTIVE NEGATIVE; Opiate Screen,Urine PRESUMPTIVE NEGATIVE
--- NOTE | 2020-01-22 17:47 | Cat Scan Report ---
CT MAXILLOFACIAL WITHOUT CONTRAST INDICATION / CLINICAL INFORMATION: nasal bone tenderness and swelling. TECHNIQUE: All CT scans at this location are performed using CT dose reduction for ALARA by means of automated e xposure control. COMPARISON: None available. FINDINGS: FACIAL BONES: There is slight angulation of the left nasal bone without significant displacement. The re appears to be a mild overlying soft tissue edema and correlation be needed regarding recent trauma tic process in this patient with given history of "nasal bone pain". No focal erosive lesions are ayesha ntified on this noncontrast study. The facial bones, including the orbital linda, sinuses and zygomat ic arches appear intact. There is slight deviation of the nasal septum though the septum also appears intact PARANASAL SINUSES: There is mild scattered opacification within the ethmoid air cells. There is minim al mucosal thickening along the inferior left maxillary sinus. ORBITS: The optic globes appear to demonstrate appropriate size and configuration. No significant pos t septal inflammatory changes are identified. VISUALIZED INTRACRANIAL STRUCTURES: No significant abnormality. ADDITIONAL FINDINGS: None. IMPRESSION: 1. There is slight angulation of the left at nasal bone as detailed above; correlation would be nee ded regarding trauma and emergent presentation is patient with history of "nasal bone pain". There is mild sinus inflammatory disease as described. Signer Name: Reymundo Booker MD Signed: 01/22/2020 5:42 PM Workstation Name: [id number]
[2020-01-22 18:48] VITALS: BP 132/83
== END 2020-01-22 18:35 | disposition home or self-care (01) ==
LOC: ED 09:09
DX: S02.2XXA Fracture of nasal bones, initial encounter for closed fracture (principal); N39.0 Urinary tract infection, site not specified; J01.90 Acute sinusitis, unspecified; N83.201 Unspecified ovarian cyst, right side; F15.10 Other stimulant abuse, uncomplicated; F17.200 Nicotine dependence, unspecified, uncomplicated; Z86.69 Personal history of other diseases of the nervous system and sense organs; Z21 Asymptomatic human immunodeficiency virus [HIV] infection status; Z79.1 Long term (current) use of non-steroidal anti-inflammatories (NSAID); Z79.899 Other long term (current) drug therapy; Y04.2XXA Assault by strike against or bumped into by another person, initial encounter; Y93.89 Activity, other specified; Y92.89 Other specified places as the place of occurrence of the external cause; Y99.8 Other external cause status
CPT/HCPCS: 36415; 70486; 76802; 76817; 80053; 80307; 80320; 81001; 83690; 84702; 85025; 86900; 86901; 87086; G0480

== ENCOUNTER 2020-09-25 14:38 | Emergency (ER) | payer MEDICAID ==
[2020-09-25] MEDS ORDERED: IBUPROFEN 600 MG TAB PO ONE (20:24)
[2020-09-25] MEDS ORDERED: ACETAMINOPHEN 500 MG TAB PO ONE (20:29)
--- NOTE | 2020-09-25 20:29 | Event Note ---
ED Screening Note Date of service: 09/25/20 Time: 20:28 ED Screening Note: 35-year-old -[place]ub[place] female presents to the emergency room for cough and body aches. It was noted in triage patient had a low-grade temperature. This initial assessment/diagnostic orders/clinical plan/treatment(s) is/are subject to change based on patients health status, clinical progression and re- assessment by fellow clinical providers in the ED. Further treatment and workup at subsequent clinical providers discretion. Patient/guardian urged not to elope from the ED as their condition may be serious if not clinically assessed and managed. Initial orders include: X-ray and acetaminophen
--- NOTE | 2020-09-25 20:51 | XRay Report ---
CHEST 2 VIEWS INDICATION / CLINICAL INFORMATION: cough and fever. COMPARISON: 09/30/2017 FINDINGS: SUPPORT DEVICES: None. HEART / MEDIASTINUM: No significant abnormality. LUNGS / PLEURA: Acute peripheral bilateral airspace disease No pneumothorax. ADDITIONAL FINDINGS: No significant additional findings. IMPRESSION: Patchy peripheral bilateral airspace disease consistent with atypical or viral pneumonia Signer Name: John Figueroa MD FACR Signed: 09/25/2020 8:46 PM Workstation Name: [id number]
[2020-09-25] MEDS ORDERED: SODIUM CHLORIDE 0.9% 1000 ML 1,000 ML IV ONE (22:27)
--- NOTE | 2020-09-25 22:28 | Emergency Department Report ---
- General Chief Complaint: Pain General Stated Complaint: BODYACHES Source: patient, EMS Mode of arrival: Ambulatory Limitations: No Limitations - History of Present Illness Initial Comments: This is a 35-year-old female nontoxic, well nourished in appearance, no acute signs of distress presents to the ED with c/o of productive cough, fever, chills, body aches, rhinorrhea, nasal congestion x several days. Patient describes productive cough as yellow mucus production. Patient denies any sick contact. Patient denies any recent travels, long car, recent hospital stays. Patient denies any calf pain or calf tenderness. Patient denies any chest pain, short of breath, nausea, vomiting, hemoptysis, numbness, tingling, headache or stiff neck. Denies any drug allergies. Past medical history includes HIV which she stated she is compliant with medication and follows PCP. MD Complaint: fever, cough, rhinorrhea, nasal congestion -: days(s) Severity: mild Severity scale (0 -10): 8 Quality: aching Consistency: constant Improves With: nothing Worsens With: nothing Associated Symptoms: fever, chills, rhinorrhea, nasal congestion, cough. denies: myalgias, diaphoresis, headache, sore throat, stiff neck, chest pain, shortness of breath, abdominal pain, nausea, vomiting, diarrhea, dysuria, rash, confusion, right sweats, weight loss, epistaxis, hoarseness, ear pain Treatments Prior to Arrival: none - Related Data Previous Rx's Medication Instructions Recorded Last Taken Type cefUROXime [Ceftin] 250 mg PO Q12H #14 tablet 09/30/17 Unknown Rx Doxycycline Hyclate [Doxycycline 100 mg PO BID 10 Days #20 tab 01/22/20 Unknown Rx Hyclate TAB] Fluticasone [Flonase] 1 spray NS QDAY #1 bottle 01/22/20 Unknown Rx Ibuprofen [Motrin 600 MG tab] 600 mg PO Q8H PRN #14 tablet 01/22/20 Unknown Rx Acetaminophen [Tylenol] 650 mg PO Q8H PRN #20 capsule 09/26/20 Unknown Rx Azithromycin [Zithromax Z-VIRAL] 250 mg PO DAILY #6 tablet 09/26/20 Unknown Rx Allergies Allergy/AdvReac Type Severity Reaction Status Date / Time No Known Allergies Allergy Verified 07/23/17 14:08 ED Review of Systems ROS: Stated complaint: BODYACHES Other details as noted in HPI Comment: All other systems reviewed and negative Constitutional: chills, fever Eyes: denies: eye pain, eye discharge, vision change ENT: congestion. denies: ear pain, throat pain Respiratory: cough. denies: shortness of breath, wheezing Cardiovascular: denies: chest pain, palpitations Endocrine: no symptoms reported Gastrointestinal: denies: abdominal pain, nausea, diarrhea Genitourinary: denies: urgency, dysuria, discharge Musculoskeletal: denies: back pain, joint swelling, arthralgia Skin: denies: rash, lesions Neurological: denies: headache, weakness, paresthesias Psychiatric: denies: anxiety, depression Hematological/Lymphatic: denies: easy bleeding, easy bruising ED Past Medical Hx - Past Medical History Hx Seizures: Yes (?? possible immediate phase 01/2015) Hx HIV: Yes - Surgical History Additional Surgical History: C/S x 5 / SURGERY FOR ECTOPIC - Social History Smoking Status: Never Smoker Substance Use Type: None - Medications Home Medications: Home Medications Medication Instructions Recorded Confirmed Last Taken Type cefUROXime [Ceftin] 250 mg PO Q12H #14 tablet 09/30/17 Unknown Rx Doxycycline Hyclate [Doxycycline 100 mg PO BID 10 Days #20 tab 01/22/20 Unknown Rx Hyclate TAB] Fluticasone [Flonase] 1 spray NS QDAY #1 bottle 01/22/20 Unknown Rx Ibuprofen [Motrin 600 MG tab] 600 mg PO Q8H PRN #14 tablet 01/22/20 Unknown Rx Acetaminophen [Tylenol] 650 mg PO Q8H PRN #20 capsule 09/26/20 Unknown Rx Azithromycin [Zithromax Z-VIRAL] 250 mg PO DAILY #6 tablet 09/26/20 Unknown Rx ED Physical Exam - General Limitations: No Limitations General appearance: alert, in no apparent distress - Head Head exam: Present: atraumatic, normocephalic - Eye Eye exam: Present: normal appearance - ENT ENT exam: Present: normal exam, normal orophraynx - Neck Neck exam: Present: normal inspection, full ROM. Absent: tenderness, meningismus, lymphadenopathy - Respiratory Respiratory exam: Present: normal lung sounds bilaterally. Absent: respiratory distress, wheezes, rales, rhonchi, stridor, chest wall tenderness, accessory muscle use, decreased breath sounds, prolonged expiratory - Cardiovascular Cardiovascular Exam: Present: regular rate, normal rhythm, tachycardia, normal heart sounds. Absent: irregular rhythm, systolic murmur, diastolic murmur, rubs, gallop - GI/Abdominal GI/Abdominal exam: Present: soft, normal bowel sounds. Absent: distended, tenderness, guarding, rebound, rigid, diminished bowel sounds - Extremities Exam Extremities exam: Present: normal inspection, full ROM - Back Exam Back exam: Present: normal inspection, full ROM. Absent: tenderness, CVA tenderness (R), CVA tenderness (L), muscle spasm, paraspinal tenderness, vertebral tenderness, rash noted - Neurological Exam Neurological exam: Present: alert, oriented X3, normal gait - Psychiatric Psychiatric exam: Present: normal affect, normal mood - Skin Skin exam: Present: warm, dry, intact, normal color. Absent: rash ED Course Vital Signs 09/25/20 09/25/20 09/26/20 15:18 21:37 02:06 Temperature 100.5 F H 101.6 F H 98.6 F Pulse Rate 98 H 95 H 71 Respiratory 24 17 20 Rate Blood Pressure 121/79 Blood Pressure 127/74 [Left] O2 Sat by Pulse 97 99 97 Oximetry - Reevaluation(s) Reevaluation #1: 09/25/20 22:31 Patient is speaking in full sentences with no signs of distress noted. ED Medical Decision Making - Lab Data Lab Results 09/25/20 Range/Units 20:53 HCG, Quant < 2 (0-4) mIU/mL - Radiology Data [facility] [address] [place] [address] XRay Report Signed Patient: YARELY OCHOA MR#: [id number] : 1985 Acct:[id number] Age/Sex: 35 / F ADM Date: 09/25/20 Loc: ED Attending Dr: Ordering Physician: JOSE FERNANDEZ Date of Service: 09/25/20 Procedure(s): XR chest routine 2V Accession Number(s): [id number] cc: JOSE FERNANDEZ Fluoro Time In Minutes: CHEST 2 VIEWS INDICATION / CLINICAL INFORMATION: cough and fever. COMPARISON: 09/30/2017 FINDINGS: SUPPORT DEVICES: None. HEART / MEDIASTINUM: No significant abnormality. LUNGS / PLEURA: Acute peripheral bilateral airspace disease No pneumothorax. ADDITIONAL FINDINGS: No significant additional findings. IMPRESSION: Patchy peripheral bilateral airspace disease consistent with atypical or viral pneumonia Signer Name: John Figueroa MD FACR Signed: 09/25/2020 8:46 PM Workstation Name: [id number] Transcribed By: Dictated By: John Figueroa MD Electronically Authenticated By: John Figueroa MD Signed Date/Time: 09/25/202045 DD/ 45 TD/TT: - Medical Decision Making This is a 35-year-old female that presents with pneumonia with suspected Covid patient is stable and was examined by me. Chest x-ray has been obtained and patient is notified of x-ray results with no questions noted. Patient does meet clinical concerns of COVID-19 and patient was instructed and educated on signs and symptoms and to self quarantine and seek medical attention as soon as possible if symptoms worsen and continue. Patient received received medical resuscitation in the ER with IV fluids, antipyretic, and IV antibiotics. Patient be treated with Z-Viral. Patient was instructed to increase hydration, rest and take Tylenol for fever episodes. Vitals stable prior to discharge. Patient is nonfebrile and normal heart rate. Patient was instructed Follow-up with a primary care doctor in 3-5 days or if symptoms worsen and continue return to emergency room as soon as possible. At time time of discharge, the patient does not seem toxic or ill in appearance. No acute signs of distress noted. Patient agrees to discharge treatment plan of care. No further questions noted by the patient.nt. Critical care attestation.: If time is entered above; I have spent that time in minutes in the direct care of this critically ill patient, excluding procedure time. ED Disposition Clinical Impression: Suspected COVID-19 virus infection PNA (pneumonia) Qualifiers: Pneumonia type: due to unspecified organism Laterality: bilateral Lung location: unspecified part of lung Qualified Code(s): J18.9 - Pneumonia, unspecified organism Disposition: DC-01 TO HOME OR SELFCARE Is pt being admited?: No Does the pt Need Aspirin: No Condition: Stable Instructions: COVID-19 Frequently Asked Questions, COVID-19: How to Protect Yourself and Others - CDC, Community-Acquired Pneumonia, Adult, Bacterial Pneumonia (ED) Additional Instructions: Follow-up with a primary care doctor in 3-5 days or if symptoms worsen and continue return to emergency room as soon as possible. As educated and instructed to you must self quarantine yourself and people that you have been in close contact with similar symptoms for the next 14 days. Please see your nearest health department or primary care doctor that you are referred to for COVID testing. Increased rest, hydration, and take Tylenol as prescribed for fever episode. Prescriptions: Acetaminophen [Tylenol] 650 mg PO Q8H PRN #20 capsule PRN Reason: Fever >101 Azithromycin [Zithromax Z-VIRAL] 250 mg PO DAILY #6 tablet Referrals: PRIMARY CAREMD [Primary Care Provider] - 3-5 Days JOE VALENCIA MD [Staff Physician] - 3-5 Days Time of Disposition: 02:11
[2020-09-25] MEDS ORDERED: AZITHROMYCIN/NS 500 MG/250 ML 500 MG/250 ML BAG IV ONE (22:30)
[2020-09-25] MEDS ORDERED: cefTRIAXone/NS 1 GM/50 ML 1 GM/50 ML BAG IV ONE (22:30)
[2020-09-25] MEDS ORDERED: IBUPROFEN 200 MG TAB PO ONE (22:47)
[2020-09-26 02:07] VITALS: BP 127/74
== END 2020-09-26 02:36 | disposition home or self-care (01) ==
LOC: ED 14:38
DX: J18.8 Other pneumonia, unspecified organism (principal); Z20.822 Contact with and (suspected) exposure to COVID-19; G40.909 Epilepsy, unspecified, not intractable, without status epilepticus; Z21 Asymptomatic human immunodeficiency virus [HIV] infection status; Z79.899 Other long term (current) drug therapy
CPT/HCPCS: 36415; 71046; 84702; 96365; 96367; 99284; J0456; J0696; J7030

== ENCOUNTER 2021-03-28 15:53 | Emergency (ER) | payer MEDICAID ==
[2021-03-28 16:02] VITALS: BP 138/70
[2021-03-28] MEDS ORDERED: IBUPROFEN 800 MG TAB PO ONE (16:29)
[2021-03-28] MEDS ORDERED: HYDROcodone/ACETAMINOPHEN 7.5-325MG TAB PO ONE (16:29)
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
--- NOTE | 2021-03-28 17:45 | XRay Report ---
XR femur 2+V RT INDICATION / CLINICAL INFORMATION: fall, trauma. COMPARISON: None available. FINDINGS: BONES/JOINT(S): No acute fracture or subluxation. No significant degenerative changes. SOFT TISSUES: No significant abnormality. ADDITIONAL FINDINGS: None. Signer Name: Venancio Ro MD Signed: 03/28/2021 5:41 PM Workstation Name: [id number]
--- NOTE | 2021-03-28 17:46 | XRay Report ---
XR pelvis 1-2V INDICATION / CLINICAL INFORMATION: fall, trauma. COMPARISON: None available. FINDINGS: BONES/JOINT(S): No acute fracture or subluxation. No significant degenerative changes. SOFT TISSUES: No significant abnormality. ADDITIONAL FINDINGS: None. Signer Name: Venancio Ro MD Signed: 03/28/2021 5:42 PM Workstation Name: [id number]
== END 2021-03-28 19:31 | disposition home or self-care (01) ==
LOC: ED 15:53
DX: S32.511A Fracture of superior rim of right pubis, initial encounter for closed fracture (principal); S32.502A Unspecified fracture of left pubis, initial encounter for closed fracture; R56.9 Unspecified convulsions; Z21 Asymptomatic human immunodeficiency virus [HIV] infection status; Z98.890 Other specified postprocedural states; V89.9XXA Person injured in unspecified vehicle accident, initial encounter; Y93.89 Activity, other specified; Y92.89 Other specified places as the place of occurrence of the external cause; Y99.8 Other external cause status
CPT/HCPCS: 72170; 99283